=== PATIENT | male | born 1975 | race Caucasian/White ===

== ENCOUNTER 2025-05-12 21:10 | Inpatient (IN) ==
--- NOTE | 2025-05-12 21:34 | Emergency Department Note ---
Impression & Plan Acute right-sided weakness, Stroke-like symptom, Hypertension, Cervical spinal stenosis, Cervical disc herniation ED Provider Note NAME: YARY VALERO AGE: 50 SEX: M : 1975 ARRIVES VIA: Walk-In INFORMANT: Patient, ED PROVIDER(S): Ubaldo Villagran DO CHIEF COMPLAINT: Weakness HPI: The patient is a 50-year-old male who presented to the emergency department for an evaluation of right-sided weakness. The patient initially noticed right upper extremity weakness over the course the last several weeks. The patient started noticing right arm weakness greater than usual as well as right leg weakness over the last 5 to 6 days. He denies having any headache. He has a history of hypertension but has not been compliant with his outpatient medications. He denies having any trauma. He had a workup and they feel this could be secondary to neck issues. He is waiting for an MRI. ROS: See above HPI for pertinent positives & negatives. A total of 10 systems reviewed and were otherwise negative. PAST MEDICAL HISTORY: See Below PAST SURGICAL HISTORY: See Below FAMILY HISTORY: See Below SOCIAL HISTORY: See Below HOME MEDICATIONS: See Below ALLERGIES: See Below VITALS: See Below PHYSICAL EXAMINATION: GENERAL: Patient is awake alert in no acute distress patient is resting comfortably and showing no signs of anxiety EYES: The conjunctivae are clear. The pupils are round and reactive. EARS, NOSE, MOUTH AND THROAT: The nose is without any evidence of any deformity. NECK: The neck is nontender and supple. RESPIRATORY: Normal respiratory effort is noted there is no evidence of wheezing rhonchi or rales CARDIOVASCULAR: Regular rate and rhythm noted there no murmurs rubs or gallops normal S1 normal S2. GASTROINTESTINAL: The abdomen is soft. Abdomen is nontender. MUSCULOSKELETAL/EXTREMITIES: There is no evidence of gross deformity full range of motion is noted in the hips and shoulders. SKIN: There is no obvious evidence of any rash. There are no petechiae, pallor or cyanosis noted. NEUROLOGIC: Patient is awake alert and oriented x3. Jacquard Card Cutter strength was diminished in the right upper extremity compared to left. There is a drift in the right right upper extremity. The patient is able to hold each leg off the bed however the right leg falls in under 5 seconds. MEDICAL DECISION MAKING: The patient is a 50-year-old male who presented to the emergency department for an evaluation of weakness. The patient has noticed right upper extremity weakness for quite some time but starting last week his right upper extremity started to become more weak and he started noticing right lower extremity weakness. I discussed the patient's laboratory and radiographic studies with him. He was found to have hypertension in the emergency department. This was treated with IV medications. The patient's condition was not significantly improved over his time in the emergency department. CT angiography of the head and neck did not reveal any acute occlusion or significant atherosclerosis. The patient may require further inpatient testing which could include MRI of the head and neck. Given the possibility of a radiculopathy he was treated with Decadron. I discussed his condition with the on-call [facility] hospitalist. Triage Nursing notes reviewed. Prior medical records reviewed Vital Signs: reviewed and remarkable for elevated blood pressure. Differential diagnosis: Infection, dehydration, metabolic abnormality, hypo/hyperglycemia, electrolyte disturbance, anemia, hypoxia, cardiac sources, intracerebral event, toxicologic, neurologic, as well as other pathologies. ER treatment provided: See below Diagnostics interpreted by me: ECG: EKG was obtained in the emergency department. My interpretation is normal sinus rhythm at 89 bpm. There is no ectopy. There is no acute ST segment abnormalities noted. LVH was suggested by voltage criteria. This was compared to a tracing from March 10, 2024. No changes were noted. Cardiac Monitoring: An order was placed for continuous cardiac monitoring. The monitor shows a rate of 80 bpm with sinus rhythm. Laboratory studies: As stated above and show below. Imaging studies: See below. Radiographic imaging was reviewed by myself Consultation(s): Dr. Julien was notified about the patient. Past Med/Surg History Problem List (Updated 05/13/25 @ 08:46 by Ubaldo Villagran DO) Cervical disc herniation (Acute) Cervical spinal stenosis (Acute) Arthralgia of cervical spine Hypertension (Acute) Stroke-like symptom (Acute) Acute right-sided weakness (Acute) Chondromalacia, patella Chronic pain of left knee Testicular abscess (Acute) S/P lumbar spinal fusion (Chronic) Sepsis Medical History Hx MRSA infection "[facility]" "randomly gets wounds on his legs and has to f/u w/wound care." last dx thru PCP in center. thinks about 6 months ago, ~07/2023". Per [facility] infection control on 02/14/24, he does not have a MRSA infection within the last year. Diabetes mellitus, type 2 NIDDM Hx of migraines History of anesthesia complications 2004 @[facility], "had to use shock paddles to bring pt out of anesthesia" 2012 @[facility] following endoscopy procedure, "had to use paddles to bring him out of anesthesia again" Sleep apnea CPAP-unable to tolerate, sleeps sitting up COPD (chronic obstructive pulmonary disease) daily inhaler; controlled, stable per pt; last albuterol inhaler use 1 month ago GERD (gastroesophageal reflux disease) controlled, stable per pt Hypertension variable per pt Hyperlipidemia Surgical History History of esophagogastroduodenoscopy (EGD) w/dialation History of lumbar fusion 2004, [facility]. Social History Smoking Status: Current every day smoker Tobacco Type: Cigarettes Cigarettes Per Day: 20; Second Hand Exposure: No; Do You Dip or Chew Tobacco: No; Tobacco Cessation Education Requested by Patient: No Hx Alcohol Use: No Hx Substance Use: Yes Last Used Substance: Unknown Last Used Substance Other:: last use 11/2023-advised Preferred Language: Angolan Communication Ability: Effective Nuclear Medicine Physician Required: No Beliefs That Will Affect Care: None Current Living Situation: Alone Other Information That Helps Us Care for You: No Feels Safe at Home: Yes Safety Concerns: Feels Safe At This Time Assistive Devices: Cane Allergies Allergies Allergy/AdvReac Type Severity Reaction Status Date / Time No Known Allergies Allergy Verified 04/08/24 07:36 Home Meds Home Medications Medication Instructions Recorded Confirmed ibuprofen 800 mg tablet 800 mg PO Q8H PRN Pain 02/11/24 05/13/25 lisinopril 20 mg tablet 20 mg PO HS 02/11/24 05/13/25 metformin 1,000 mg tablet 1,000 mg PO BID 02/11/24 05/13/25 metoprolol succinate 50 mg 50 mg PO HS 02/11/24 05/13/25 tablet,extended release 24 hr pantoprazole 40 mg tablet,delayed 40 mg PO HS 02/11/24 05/13/25 release rosuvastatin 20 mg tablet 20 mg PO HS 02/11/24 05/13/25 semaglutide 1 mg/dose (4 mg/3 mL) 1 mg subcut Q7D 02/11/24 05/13/25 subcutaneous pen injector (Ozempic) umeclidinium 62.5 mcg-vilanterol 1 inh inhalation HS 02/11/24 05/13/25 25 mcg/actuation powdr for inhalation (Anoro Ellipta) bumetanide 1 mg tablet mg 05/13/25 umeclidinium 62.5 mcg-vilanterol inhalation 05/13/25 25 mcg/actuation powdr for inhalation (Anoro Ellipta) Previous Rx's Medication Instructions Recorded tramadol 50 mg tablet 50 - 100 mg (1 - 2 x 50 mg) PO Q6H 04/08/24 PRN pain #15 tabs Results & Data (ED) Vital Signs Vital Signs - 24 hr 05/12/25 21:12 05/12/25 21:21 05/12/25 21:43 Temperature 37.0 C Temperature Source Oral Pulse Rate 96 H 96 H 88 Pulse Rate [Apical] Pulse Rate from SpO2 Sensor Pulse Rhythm [Apical] Pulse Strength [Apical] Respiratory Rate 18 Respiratory Effort / Characteristics Non-Labored Spontaneous Respiratory Depth Normal Respiratory Pattern Regular Blood Pressure 218/112 H 184/112 H Blood Pressure [Right Arm] Blood Pressure Mean 147 Blood Pressure Mean [Right Arm] Pulse Oximetry 97 Oxygen Delivery Method Room Air Sepsis Recent Fever Within 48 Hours No Sepsis New/Unexplained Change in Mental Status N/A Sepsis Action Taken by Nursing No Action Required 05/12/25 22:00 05/12/25 22:30 05/12/25 23:00 Temperature Temperature Source Pulse Rate 93 H Pulse Rate [Apical] 92 H 90 Pulse Rate from SpO2 Sensor 93 H Pulse Rhythm [Apical] Regular Pulse Strength [Apical] Normal Respiratory Rate 18 19 24 Respiratory Effort / Characteristics Non-Labored Spontaneous Respiratory Depth Normal Respiratory Pattern Regular Blood Pressure 131/74 Blood Pressure [Right Arm] 175/108 H 158/103 H Blood Pressure Mean 93 Blood Pressure Mean [Right Arm] 130 121 Pulse Oximetry 97 95 96 Oxygen Delivery Method Room Air Sepsis Recent Fever Within 48 Hours Sepsis New/Unexplained Change in Mental Status Sepsis Action Taken by Nursing 05/12/25 23:03 05/12/25 23:30 05/13/25 00:00 Temperature Temperature Source Pulse Rate 84 88 80 Pulse Rate [Apical] Pulse Rate from SpO2 Sensor 84 Pulse Rhythm [Apical] Pulse Strength [Apical] Respiratory Rate 19 17 20 Respiratory Effort / Characteristics Respiratory Depth Respiratory Pattern Blood Pressure 158/103 H 168/107 H 170/109 H Blood Pressure [Right Arm] Blood Pressure Mean 121 131 129 Blood Pressure Mean [Right Arm] Pulse Oximetry 97 97 95 Oxygen Delivery Method Sepsis Recent Fever Within 48 Hours Sepsis New/Unexplained Change in Mental Status Sepsis Action Taken by Nursing 05/13/25 00:30 05/13/25 01:03 05/13/25 01:33 Temperature Temperature Source Pulse Rate 81 81 90 Pulse Rate [Apical] Pulse Rate from SpO2 Sensor Pulse Rhythm [Apical] Pulse Strength [Apical] Respiratory Rate 17 19 23 Respiratory Effort / Characteristics Respiratory Depth Respiratory Pattern Blood Pressure 177/103 H 152/111 H 172/107 H Blood Pressure [Right Arm] Blood Pressure Mean 131 124 128 Blood Pressure Mean [Right Arm] Pulse Oximetry 96 94 96 Oxygen Delivery Method Sepsis Recent Fever Within 48 Hours Sepsis New/Unexplained Change in Mental Status Sepsis Action Taken by Nursing 05/13/25 02:24 05/13/25 02:30 Temperature Temperature Source Pulse Rate 84 93 H Pulse Rate [Apical] Pulse Rate from SpO2 Sensor Pulse Rhythm [Apical] Pulse Strength [Apical] Respiratory Rate 14 14 Respiratory Effort / Characteristics Respiratory Depth Respiratory Pattern Blood Pressure 179/112 H Blood Pressure [Right Arm] Blood Pressure Mean 134 Blood Pressure Mean [Right Arm] Pulse Oximetry 96 96 Oxygen Delivery Method Sepsis Recent Fever Within 48 Hours Sepsis New/Unexplained Change in Mental Status Sepsis Action Taken by Shelter Medications Current Medication List: was personally reviewed by me Laboratory Data Attestation: I reviewed the patient's lab results. 05/12/25 21:25 05/12/25 21:25 Lab Results 05/12/25 05/12/25 05/12/25 Range/Units 21:25 21:29 21:36 WBC 12.34 H (4.8-10.8) K/ul RBC 5.39 (4.70-6.10) M/uL Hgb 16.9 (14.0-18.0) g/dl POC Hgb 16.7 (14.0-18.0) g/dl Hct 48.3 (42.0-52.0) % POC Hct 49 (42-52) % MCV 89.6 (80.0-100.0) fL MCH 31.4 (25.0-34.0) pg MCHC 35.0 (32.0-36.0) g/dL RDW Std Deviation 40.7 (36.4-46.3) fL RDW Coeff of Cecil 12.4 (11.5-14.5) % Plt Count 290 (130-400) K/uL MPV 9.7 (9.4-12.4) fL Immature Gran % (Auto) 0.2 % Neut % (Auto) 60.6 % Lymph % (Auto) 27.2 % Erath % (Auto) 7.9 % Eos % (Auto) 3.5 % Baso % (Auto) 0.6 % Neut # (Auto) 7.46 H (1.40-6.50) K/uL Lymph # (Auto) 3.36 (1.20-3.40) K/uL Erath # (Auto) 0.98 H (0.11-0.59) K/uL Eos # (Auto) 0.43 (0.00-0.50) K/uL Baso # (Auto) 0.08 (0.00-0.20) K/uL Immature Gran # (Auto) 0.03 (0.01-0.20) K/uL ESR 32 H (0-15) mm/hr PT 10.5 (9.0-12.0) Seconds INR 1.0 (0.9-1.1) APTT 28 (21-31) Seconds PTT Ratio 1.0 POC Sodium 139 (135-144) mmol/L Sodium 137 (136-145) mmol/L POC Potassium 3.7 (3.3-5.0) mmol/L Potassium 3.8 (3.5-5.1) mmol/L POC Chloride 104 (101-112) mmol/L Chloride 104 (98-107) mmol/L Carbon Dioxide 25 (21-32) mmol/L POC Total CO2 24 (24-31) mmol/L Anion Gap 8 (3-11) POC Anion Gap 16.0 (16-25) mmol/L POC BUN 9 (7-18) mg/dl BUN 9 (6-23) mg/dl Creatinine 0.62 (0.6-1.4) mg/dl POC Creatinine 0.7 (0.6-1.3) mg/dl Est Cr Clr Drug Dosing 182.1 ml/min eGFR 117.90 BUN/Creatinine Ratio 14.5 (10-20) Glucose 127 H (70-99(Fasting)) mg/dl POC Glucose 138 H (70-99) mg/dl POC Glucose (other) 131 H (70-99) mg/dl Calcium 9.5 (8.6-10.3) mg/dl POC Ioniz Calcium Marion 1.13 (1.12-1.32) mmol/l Magnesium 1.9 (1.7-2.4) mg/dl Total Bilirubin 0.5 (0.2-1.0) mg/dl AST 23 (13-39) U/L ALT 41 (7-52) U/L Alkaline Phosphatase 62 (34-104) U/L Troponin I High Sens 9.5 (0-20) pg/ml C-Reactive Protein 0.91 H (0-0.5) mg/dl Total Protein 7.7 (6.0-8.3) gm/dl Albumin 4.2 (3.4-5.0) gm/dl Globulin 3.5 (2.5-4.0) gm/dl Albumin/Globulin Ratio 1.2 (0.9-2) Administered Medications Metformin HCl (Metformin Hcl 500 Mg Tab) 1,000 mg PO BID CHRISTINE Stop: 06/12/25 08:59 Last Admin: 05/13/25 08:40 Dose: 1,000 mg Documented By: OLE Discontinued Medications Aspirin (Aspirin Chew 324 Mg) 324 mg PO NOW STA Stop: 05/13/25 02:20 Last Admin: 05/13/25 02:31 Dose: 324 mg Documented By: SYBIL Dexamethasone Sodium Phosphate (DexamethasonePf 10 Mg/Ml Vial) 10 mg IV NOW ONE Stop: 05/13/25 01:31 Last Admin: 05/13/25 01:40 Dose: 10 mg Documented By: SYBIL Ioversol (Optiray 320 125ml) 115 ml IV ONCE ONE Stop: 05/12/25 21:52 Last Admin: 05/12/25 21:52 Dose: 115 ml Documented By: ROBERTA Labetalol HCl (Labetalol Hcl Iv 5 Mg/Ml 20ml) 10 mg IV NOW STA Stop: 05/12/25 21:25 Last Admin: 05/12/25 21:43 Dose: 10 mg Documented By: RASHIDA Lorazepam (Lorazepam 2 Mg/1 Ml Vial) 1 mg IV ONE PRN PRN Reason: PRIOR TO MRI Last Admin: 05/13/25 03:02 Dose: 1 mg Documented By: PAUL Rosuvastatin Calcium (Rosuvastatin Calcium 20 Mg Tab) 20 mg PO NOW STA Stop: 05/13/25 02:31 Last Admin: 05/13/25 06:05 Dose: 20 mg Documented By: NAY Imaging Data Attestation: I personally reviewed and interpreted this imaging study as follows: My Impression: 1 view chest x-ray was obtained in the emergency department. My interpretation is no free air or definite infiltrate, final report below. CT of the brain was obtained in the emergency department. My interpretation is no intracranial hemorrhage or mass effect, final report below. Radiologist's Impression: Chest X-Ray 05/12/25 21:24 HISTORY: Neurodeficit. Acute stroke. TECHNIQUE: Portable AP radiograph of the chest. COMPARISON: Chest radiograph dated 10/30/2016. FINDINGS: Mild linear left lower lung opacity favoring atelectasis or scarring. No other focal lung consolidation. No pneumothorax or pleural effusion.Top normal heart size. Left-sided aortic arch. Midline trachea. No acute osseous abnormality. IMPRESSION: No acute cardiopulmonary findings. Electronically signed by Joon Jalloh 05-12-2025 10:[address] 05/12/25 21:24 Exam(s): CT HEAD Without Contrast EXAM: CT Head Without Intravenous Contrast CLINICAL HISTORY: Reason for exam: neuro deficit, acute stroke suspected. TECHNIQUE: Axial computed tomography images of the head/brain without intravenous contrast. Automated exposure control was utilized for the study. A dose lowering technique was utilized adhering to the principles of ALARA. COMPARISON: No relevant prior studies available. FINDINGS: Brain: Unremarkable. No hemorrhage. No significant white matter disease. No edema. Ventricles: Unremarkable. No ventriculomegaly. Bones/joints: Unremarkable. No acute fracture. Soft tissues: Unremarkable. Sinuses: Unremarkable as visualized. No acute sinusitis. Mastoid air cells: Unremarkable as visualized. No mastoid effusion. IMPRESSION: No evidence of acute intracranial pathology. Electronically signed by: Brooke Ragland MD 05/13/25 00:54 AM Head CTA 05/12/25 21:24 Exam(s): CTA HEAD With Contrast IV Amt: 115 ml opti 320 EXAM: CT Angiography Head With Intravenous Contrast CLINICAL HISTORY: Reason for exam: neuro deficit, acute stroke suspected. TECHNIQUE: Axial computed tomographic angiography images of the head with intravenous contrast. CTDI is 14.03 mGy and DLP is 544.43 mGy-cm. Automated exposure control was utilized for the study. A dose lowering technique was utilized adhering to the principles of ALARA. MIP reconstructed images were created and reviewed. CONTRAST: Patient received 115 ml opti 320 of IV contrast COMPARISON: No relevant prior studies available. FINDINGS: The dural venous sinuses are patent. Right internal carotid artery: No acute findings. Intracranial segment is patent with no significant stenosis. No aneurysm. Right anterior cerebral artery: Unremarkable. No occlusion or significant stenosis. No aneurysm. Right middle cerebral artery: Unremarkable. No occlusion or significant stenosis. No aneurysm. Right posterior cerebral artery: Unremarkable. No occlusion or significant stenosis. No aneurysm. Right vertebral artery: Unremarkable as visualized. Left internal carotid artery: No acute findings. Intracranial segment is patent with no significant stenosis. No aneurysm. Left anterior cerebral artery: Unremarkable. No occlusion or significant stenosis. No aneurysm. Left middle cerebral artery: Unremarkable. No occlusion or significant stenosis. No aneurysm. Left posterior cerebral artery: Unremarkable. No occlusion or significant stenosis. No aneurysm. Left vertebral artery: Unremarkable as visualized. Basilar artery: Unremarkable. No occlusion or significant stenosis. No aneurysm. IMPRESSION: Negative CT angiogram of the head. Electronically signed by: Brooke Ragland MD 05/13/25 01:22 AM Neck CTA 05/12/25 21:24 Exam(s): CTA NECK With Contrast IV Amt: 115 ml opti 320 EXAM: CT Angiography Neck With Intravenous Contrast CLINICAL HISTORY: Reason for exam: neuro deficit, acute stroke suspected. TECHNIQUE: Routine carotid CT angiography protocol was performed with intravenous contrast. NASCET criteria using the distal ICAs for comparison were used for evaluation of stenoses. Automated exposure control was utilized for the study. A dose lowering technique was utilized adhering to the principles of ALARA. MIP reconstructed images were created and reviewed. CONTRAST: Patient received 115 ml opti 320 of IV contrast COMPARISON: None. FINDINGS: VASCULATURE: Right common carotid artery: Unremarkable. No occlusion or significant stenosis. No dissection. Right internal carotid artery: Unremarkable. Extracranial segment is patent with no occlusion or significant stenosis. No dissection. Right external carotid artery: Unremarkable. No occlusion. Right vertebral artery: Unremarkable. No occlusion or significant stenosis. No dissection. Left common carotid artery: Unremarkable. No occlusion or significant stenosis. No dissection. Left internal carotid artery: Unremarkable. Extracranial segment is patent with no occlusion or significant stenosis. No dissection. Left external carotid artery: Unremarkable. No occlusion. Left vertebral artery: Unremarkable. No occlusion or significant stenosis. No dissection. NECK: Bones/joints: Unremarkable. No acute fracture. Soft tissues: Prominent cervical lymph nodes and lingual tonsils. Lung apices: Bronchitis with pneumonitis. CAROTID STENOSIS REFERENCE USING NASCET CRITERIA: % ICA stenosis = (1 - narrowest ICA diameter/diameter of distal cervical ICA) x 100. Mild - <50% stenosis. Moderate - 50-69% stenosis. Severe - 70-94% stenosis. Near occlusion - 95-99% stenosis. Occluded - 100% stenosis. IMPRESSION: Negative CTA neck. Electronically signed by: Brooke Ragland MD 05/13/25 01:26 AM Brain MRI 05/13/25 02:19 EXAM: MR brain wo con CLINICAL HISTORY: stroke like sx TECHNIQUE: MRI of the brain was performed without contrast with multiplanar sequences obtained. COMPARISON: none. FINDINGS: Brain Parenchyma: No evidence of acute infarction or hemorrhage. Normal dill-white matter differentiation. No mass lesions or focal cortical abnormalities identified. Ventricles and Sulci: Normal size and configuration of the lateral ventricles, third ventricle, and fourth ventricle. No evidence of hydrocephalus or ventriculomegaly. Sylvian fissures, sulci, and cisterns are within normal limits. Posterior Fossa: Cerebellum and brainstem appear normal without evidence of mass lesions or signal abnormalities. Cranial Nerves: Normal course and appearance of cranial nerves identified. Vessels: No evidence of vascular malformations or aneurysms. Intracranial arteries and veins appear normal without evidence of stenosis or occlusion. Orbits and Skull Base: Orbits and skull base structures are normal without evidence of abnormalities. IMPRESSION: MRI of the brain: No acute intracranial abnormality identified. Normal appearance of brain parenchyma, ventricular system, posterior fossa, cranial nerves, vessels, orbits, and skull base. Electronically signed by José Luis Ji 05-13-2025 04:51 AM Cervical Spine MRI 05/13/25 02:19 EXAM: MR cervical spine wo con CLINICAL HISTORY: right sided numb and weak TECHNIQUE: MRI of the cervical spine was performed. Sequences obtained include sagittal T1-weighted, T2-weighted, STIR (Short Tau Inversion Recovery), and axial T2-weighted sequences. Additional sequences such as gradient echo (GRE) or post-contrast T1-weighted images may have been included based on clinical indication. COMPARISON: Comparison is made with prior imaging studies dated [MM/DD/YYYY] if available. No previous studies are available for comparison. FINDINGS: Vertebral Alignment: Loss of cervical lordosis - suggest possibility of paraspinal muscle spasm. Vertebral Bodies and Intervertebral Discs: Normal vertebral body height and alignment. Disc desiccations are noted involving C5-C6 and C6-C7 level. [id number] analysis: C2-C3: There is no significant disc pathology. Normal morphology of the ligamentum flava. No arthropathy of the uncovertebral and zygapophyseal joints. No significant spinal canal stenosis C3-C4: There is no significant disc pathology. Normal morphology of the ligamentum flava. No arthropathy of the uncovertebral and zygapophyseal joints. No significant spinal canal stenosis C4-C5: Posterior bilateral uncovertebral arthrosis causes mild narrowing of bilateral neural foramina and indenting bilateral exiting nerve root. C5-C6: Posterior disc bulge with peridiscal osteophytes; more on right. It causes bilateral neural foramina ( rightleft). It causes significant impingement on right exiting and mild impingement on left exiting nerve root. It causes compression on spinal cord. C6-C7: Diffuse disc bulge with left paracentral disc protrusion and annular tear along with right side large thickened ligamentum flavum which leads to narrowing of canal and bilateral neural foramina. It causes compression on bilateral exiting nerve root. C7-T1: There is no significant disc pathology. Normal morphology of the ligamentum flava. No arthropathy of the uncovertebral and zygapophyseal joints. No significant spinal canal stenosis Spinal Cord and Nerve Roots: Subtle hyperintensity is noted involving cervical spinal cord at the level of C5-C6 level (adjacent to the compression side) - suggest possibility of compressive myelopathy. Soft Tissues: Paraspinal soft tissues appear normal without evidence of abnormal signal intensity or mass lesions. IMPRESSION: 1. Mild cervical spondylosis changes. 2. Posterior disc herniation is noted at C4-C5 to C6-C7 level. 3. Canal stenosis is noted at C5-C6 level causing compression on cord with changes of compressive myelopathy as described. Electronically signed by José Luis Ji 05-13-2025 04:56 AM Discharge Plan Visit Data Chief Complaint: TIA Symptoms Stated Complaint: RT SIDE WEAKNESS, BALANCE, NECK PAIN ED Provider: Roberto Valiente Discharge Problem: Acute right-sided weakness, Stroke-like symptom, Hypertension, Cervical spinal stenosis, Cervical disc herniation Patient Disposition: Admitted As Inpatient Condition: Fair Discharge Instructions Interventions: ED Discharge Assessment Last Done: 05/13/25 03:41
[2025-05-12] MEDS: LABETALOL HCL IV 5 MG/ML 20ML IV STA (21:43)
[2025-05-12 21:44] LABS: Basophils # (auto) 0.08 K/uL (0.00-0.20); Basophils % (auto) 0.6 %; Eosinophils # (auto) 0.43 K/uL (0.00-0.50); Eosinophils % (auto) 3.5 %; Hematocrit (blood only) 48.3 % (42.0-52.0); Hemoglobin 16.9 g/dl (14.0-18.0); Immature Granulocytes # (auto) 0.03 K/uL (0.01-0.20); Immature Granulocytes % (auto) 0.2 %; Lymphocytes # (auto) 3.36 K/uL (1.20-3.40); Lymphocytes % (auto) 27.2 %; Mean Corpuscular Hemoglobin 31.4 pg (25.0-34.0); Mean Corpuscular Volume 89.6 fL (80.0-100.0); Mean Platelet Volume 9.7 fL (9.4-12.4); Monocytes # (auto) 0.98 K/uL (0.11-0.59); Monocytes % (auto) 7.9 %; Neutrophils # (auto) 7.46 K/uL (1.40-6.50); Neutrophils % (auto) 60.6 %; Platelet Count 290 K/uL (130-400); RDW Coefficient of Variation 12.4 % (11.5-14.5); RDW Standard Deviation 40.7 fL (36.4-46.3); Red Blood Count 5.39 M/uL (4.70-6.10); White Blood Count 12.34 K/ul (4.8-10.8)
[2025-05-12 21:48] LABS: iSTAT Creatinine 0.7 mg/dl (0.6-1.3); iSTAT Hemoglobin 16.7 g/dl (14.0-18.0); iSTAT Ionized Calcium 1.13 mmol/l (1.12-1.32); iSTAT Potassium 3.7 mmol/L (3.3-5.0)
[2025-05-12] MEDS: OPTIRAY 320 125ml IV ONE (21:52)
[2025-05-12 22:01] LABS: Albumin Globulin Ratio 1.2 (0.9-2); Albumin Level 4.2 gm/dl (3.4-5.0); BUN Creatinine Ratio 14.5 (10-20); Bilirubin,Total 0.5 mg/dl (0.2-1.0); Calcium 9.5 mg/dl (8.6-10.3); Creatinine Clr Calc Pharmacy 182.1 ml/min; Globulin 3.5 gm/dl (2.5-4.0); Magnesium 1.9 mg/dl (1.7-2.4); Potassium 3.8 mmol/L (3.5-5.1); Total Protein 7.7 gm/dl (6.0-8.3)
[2025-05-12 22:07] LABS: Troponin I High Sensitivity 9.5 pg/ml (0-20)
--- NOTE | 2025-05-12 22:10 | XRay Report ---
HISTORY: Neurodeficit. Acute stroke. TECHNIQUE: Portable AP radiograph of the chest. COMPARISON: Chest radiograph dated 10/30/2016. FINDINGS: Mild linear left lower lung opacity favoring atelectasis or scarring. No other focal lung consolidation. No pneumothorax or pleural effusion.Top normal heart size. Left-sided aortic arch. Midline trachea. No acute osseous abnormality. IMPRESSION: No acute cardiopulmonary findings. Electronically signed by Joon Jalloh 05-12-2025 10:10 PM
[2025-05-12 22:14] LABS: Partial Thromboplastin Time 28 Seconds (21-31); Prothrombin Time 10.5 Seconds (9.0-12.0)
--- NOTE | 2025-05-13 00:55 | CT Scan Report ---
Exam(s): CT HEAD Without Contrast EXAM: CT Head Without Intravenous Contrast CLINICAL HISTORY: Reason for exam: neuro deficit, acute stroke suspected. TECHNIQUE: Axial computed tomography images of the head/brain without intravenous contrast. Automated exposure control was utilized for the study. A dose lowering technique was utilized adhering to the principles of ALARA. COMPARISON: No relevant prior studies available. FINDINGS: Brain: Unremarkable. No hemorrhage. No significant white matter disease. No edema. Ventricles: Unremarkable. No ventriculomegaly. Bones/joints: Unremarkable. No acute fracture. Soft tissues: Unremarkable. Sinuses: Unremarkable as visualized. No acute sinusitis. Mastoid air cells: Unremarkable as visualized. No mastoid effusion. IMPRESSION: No evidence of acute intracranial pathology. Electronically signed by: Brooke Ragland MD 05/13/25 00:54 AM
--- NOTE | 2025-05-13 01:23 | CT Scan Report ---
Exam(s): CTA HEAD With Contrast IV Amt: 115 ml opti 320 EXAM: CT Angiography Head With Intravenous Contrast CLINICAL HISTORY: Reason for exam: neuro deficit, acute stroke suspected. TECHNIQUE: Axial computed tomographic angiography images of the head with intravenous contrast. CTDI is 14.03 mGy and DLP is 544.43 mGy-cm. Automated exposure control was utilized for the study. A dose lowering technique was utilized adhering to the principles of ALARA. MIP reconstructed images were created and reviewed. CONTRAST: Patient received 115 ml opti 320 of IV contrast COMPARISON: No relevant prior studies available. FINDINGS: The dural venous sinuses are patent. Right internal carotid artery: No acute findings. Intracranial segment is patent with no significant stenosis. No aneurysm. Right anterior cerebral artery: Unremarkable. No occlusion or significant stenosis. No aneurysm. Right middle cerebral artery: Unremarkable. No occlusion or significant stenosis. No aneurysm. Right posterior cerebral artery: Unremarkable. No occlusion or significant stenosis. No aneurysm. Right vertebral artery: Unremarkable as visualized. Left internal carotid artery: No acute findings. Intracranial segment is patent with no significant stenosis. No aneurysm. Left anterior cerebral artery: Unremarkable. No occlusion or significant stenosis. No aneurysm. Left middle cerebral artery: Unremarkable. No occlusion or significant stenosis. No aneurysm. Left posterior cerebral artery: Unremarkable. No occlusion or significant stenosis. No aneurysm. Left vertebral artery: Unremarkable as visualized. Basilar artery: Unremarkable. No occlusion or significant stenosis. No aneurysm. IMPRESSION: Negative CT angiogram of the head. Electronically signed by: Brooke Ragland MD 05/13/25 01:22 AM
--- NOTE | 2025-05-13 01:27 | CT Scan Report ---
Exam(s): CTA NECK With Contrast IV Amt: 115 ml opti 320 EXAM: CT Angiography Neck With Intravenous Contrast CLINICAL HISTORY: Reason for exam: neuro deficit, acute stroke suspected. TECHNIQUE: Routine carotid CT angiography protocol was performed with intravenous contrast. NASCET criteria using the distal ICAs for comparison were used for evaluation of stenoses. Automated exposure control was utilized for the study. A dose lowering technique was utilized adhering to the principles of ALARA. MIP reconstructed images were created and reviewed. CONTRAST: Patient received 115 ml opti 320 of IV contrast COMPARISON: None. FINDINGS: VASCULATURE: Right common carotid artery: Unremarkable. No occlusion or significant stenosis. No dissection. Right internal carotid artery: Unremarkable. Extracranial segment is patent with no occlusion or significant stenosis. No dissection. Right external carotid artery: Unremarkable. No occlusion. Right vertebral artery: Unremarkable. No occlusion or significant stenosis. No dissection. Left common carotid artery: Unremarkable. No occlusion or significant stenosis. No dissection. Left internal carotid artery: Unremarkable. Extracranial segment is patent with no occlusion or significant stenosis. No dissection. Left external carotid artery: Unremarkable. No occlusion. Left vertebral artery: Unremarkable. No occlusion or significant stenosis. No dissection. NECK: Bones/joints: Unremarkable. No acute fracture. Soft tissues: Prominent cervical lymph nodes and lingual tonsils. Lung apices: Bronchitis with pneumonitis. CAROTID STENOSIS REFERENCE USING NASCET CRITERIA: % ICA stenosis = (1 - narrowest ICA diameter/diameter of distal cervical ICA) x 100. Mild - <50% stenosis. Moderate - 50-69% stenosis. Severe - 70-94% stenosis. Near occlusion - 95-99% stenosis. Occluded - 100% stenosis. IMPRESSION: Negative CTA neck. Electronically signed by: Brooke Ragland MD 05/13/25 01:26 AM
[2025-05-13] MEDS: dexAMETHasone**PF** 10 MG/ML VIAL IV ONE (01:40)
[2025-05-13] MEDS: ASPIRIN CHEW 324 MG PO STA (02:31)
--- NOTE | 2025-05-13 02:33 | History & Physical Report ---
Date of Service May 13, 2025 Assessment & Plan (1) Acute right-sided weakness: (2) Stroke-like symptom: (3) Arthralgia of cervical spine: (4) Hypertension: Plan Patient is a 50-year-old male with past medical history of hypertension, type II DM, HLD, COPD, BERNADETTE, GERD. Patient presented due to acute worsening of right- sided numbness and weakness since . Patient is unable to close his right hand and has both upper and lower extremity numbness and weakness resulting in difficulty with ambulation. He is being admitted for stroke workup including brain MRI and further workup of his cervical spine including MRI. #CVA workup CVA vs Cervical spinal workup - head CT and CTAs negative in ED. Laboratories WNL. Patient with right upper and lower extremity decrease strength, numbness, weakness worsening. Patient denies headaches or visual sy mptoms. ESR and CRP ordered with occasional jaw pain Brain MRI and cervical spine MRI ordered; patient with difficulty laying down and MRIs due to sleep apnea Ativan and oxygen as needed for MRI - stroke without TNK order set ( outside of time window)- active ROM, no IVs right side, Q4H neuro checks, pt/ot evals, speech eval - asa load given on admission - start ASA 81mg daily - continue rosuvastatin 20 Mg p.o. daily, ordered on admission - Allow for permissive hypertension with goal parameters 220/110 until MRI resulted - Telemetry monitoring - echo with bubble study ordered - lipid panel and A1C with AM labs - patient given Decadron 10 Mg IV in ED reassess in a.m. if beneficial to patients symptoms regarding further steroid use #HTN elevated in ED and on admission as patient has not taken any home medications since due to forgetting them on vacation - received labetalol 10 Mg IV in ED Continue labetalol as needed for BP greater than 220/110 until MRI resulted Hold lisinopril, metoprolol, Bumex #Type II DM on metformin and Ozempic (injections on ) Continue metformin Loose SSI #HLDcontinue statin #COPDcontinue inhaler #GERDcontinue PPI #Tobacco use1-1.5 to 1.5 packs cigarettes per day. Declines nicotine patch on admission Encourage smoking cessation VTE ppx: SCDs Dispo: med/telemetry Admission and Anticipated Discharge Date Admission Date: 05/13/25 History of Present Illness Chief Complaint: tia symptoms Primary Care Provider: TYLER Sanchez Patient is a 50-year-old male with past medical history of hypertension, type II DM, HLD, COPD, BERNADETTE, GERD. Patient presented due to acute worsening of right- sided numbness and weakness since . Patient is unable to close his right hand and has both upper and lower extremity numbness and weakness resulting in difficulty with ambulation. He is being admitted for stroke workup including brain MRI and further workup of his cervical spine including MRI. Patient seen at bedside with his girlfriend present. He stated for several months he has been having issues with numbness in his right upper extremity. With his PCP he has had a nerve conduction test as they thought his right upper extremity weakness was from a pinched nerve. He was prescribed gabapentin in January which seemed to help until more recently. On he developed significant right sided numbness and pain which radiated from his neck/jaw down his arm into his right leg. He has pain with chewing. He uses a cane at baseline and has been having significant difficulty ambulating. He did just have his left knee replaced in February as well. Patient stated he was going to [place] on vacation so he went on vacation and persisted through the symptoms. When he returned home yesterday he decided. Patient stated he cannot lay down for an MRI because it is of his sleep apnea and is working with his insurance to have a standing MRI in [place] however it has not yet been authorized. He supposed to have an MRI of his cervical spine due to these ongoing symptoms. He stated he has a history of lumbar stenosis and has had lumbar surgery over no recent imaging of his back. His girlfriend at bedside stated he has had intermittent slurred speech over the past 48 to 72 hours however nothing that persists. Patient denies any recent facial droop, vision changes, hearing loss, dizziness, headaches, chest pain, shortness of breath, nausea, vomiting, diarrhea, urinary or bowel incontinence. Patient is a current smoker smoking approximately 1 to 1-1/2 pack of cigarettes per day, declines nicotine patch at this time. He denies alcohol use. He does have a CPAP for sleep apnea however does not use it. He has not had any home medications since because he forgot them on vacation. He wishes to be full code. Patient is agreeable to admission and potential MRI with Ativan and oxygen during MRI. Allergies Allergy/AdvReac Type Severity Reaction Status Date / Time No Known Allergies Allergy Verified 04/08/24 07:36 Home Medications Medication Instructions Recorded Confirmed Type ibuprofen 800 mg tablet 800 mg PO Q8H PRN Pain 02/11/24 05/13/25 History lisinopril 20 mg tablet 20 mg PO HS 02/11/24 05/13/25 History metformin 1,000 mg tablet 1,000 mg PO BID 02/11/24 05/13/25 History metoprolol succinate 50 mg 50 mg PO HS 02/11/24 05/13/25 History tablet,extended release 24 hr pantoprazole 40 mg tablet,delayed 40 mg PO HS 02/11/24 05/13/25 History release rosuvastatin 20 mg tablet 20 mg PO HS 02/11/24 05/13/25 History semaglutide 1 mg/dose (4 mg/3 mL) 1 mg subcut Q7D 02/11/24 05/13/25 History subcutaneous pen injector (Ozempic) umeclidinium 62.5 mcg-vilanterol 1 inh inhalation HS 02/11/24 05/13/25 History 25 mcg/actuation powdr for inhalation (Anoro Ellipta) tramadol 50 mg tablet 50 - 100 mg (1 - 2 x 50 mg) PO Q6H 04/08/24 05/13/25 Rx PRN pain #15 tabs bumetanide 1 mg tablet mg 05/13/25 History umeclidinium 62.5 mcg-vilanterol inhalation 05/13/25 History 25 mcg/actuation powdr for inhalation (Anoro Ellipta) Past Med/Surg History Problem List (Updated 05/13/25 @ 03:38 by Heather Leiva PA-C) Arthralgia of cervical spine Hypertension (Acute) Stroke-like symptom (Acute) Acute right-sided weakness (Acute) Chondromalacia, patella Chronic pain of left knee Testicular abscess (Acute) S/P lumbar spinal fusion (Chronic) Sepsis Medical History Hx MRSA infection "[facility]" "randomly gets wounds on his legs and has to f/u w/wound care." last dx thru PCP in [place]. thinks about 6 months ago, ~07/2023". Per [facility] infection control on 02/14/24, he does not have a MRSA infection within the last year. Diabetes mellitus, type 2 NIDDM Hx of migraines History of anesthesia complications 2004 @[facility], "had to use shock paddles to bring pt out of anesthesia" 2011 @[facility] following endoscopy procedure, "had to use paddles to bring him out of anesthesia again" Sleep apnea CPAP-unable to tolerate, sleeps sitting up COPD (chronic obstructive pulmonary disease) daily inhaler; controlled, stable per pt; last albuterol inhaler use 1 month ago GERD (gastroesophageal reflux disease) controlled, stable per pt Hypertension variable per pt Hyperlipidemia Surgical History History of esophagogastroduodenoscopy (EGD) w/dialation History of lumbar fusion 2004, [facility]. Social History Smoking Status: Current every day smoker Tobacco Type: Cigarettes Cigarettes Per Day: 20; Second Hand Exposure: No; Do You Dip or Chew Tobacco: No; Hx Alcohol Use: No Hx Substance Use: Yes Last Used Substance: Unknown Last Used Substance Other:: last use 11/2023-advised Preferred Language: Kosovan Communication Ability: Effective Rn Rehabilitation Required: No Beliefs That Will Affect Care: None Current Living Situation: Alone Feels Safe at Home: Yes Assistive Devices: Cane Review of Systems Review of Systems: see HPI Physical Exam Physical Exam: The patient is awake, alert and oriented 3, well developed and well nourished, normocephalic and atraumatic, in no acute distress. Non-toxic appearing. HEENT- EOMI, mucous membranes moist. Hearing grossly intact. Heart-normal S1 and S2. No murmurs, rubs or gallops. Lungs-clear bilaterally, no respiratory distress, no accessory muscle use. Abdomen-normal bowel sounds and soft. No ascites noted. Non-tender. Extremities- no clubbing, cyanosis, or edema. Psychiatric-normal affect. Musculoskeletal: decreased [employer] strength of right upper extremity, patient unable to fully close hand. 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 Right lower extremity strength 2/5. Left lower extremity strength 5/5. Neurologic: PERRL, EOMI, accommodation nl, no face palsy, no dysarthria Motor/Sensory: no pronator drift and no sensory deficit Results & Data Results & Data Vital Signs (Past 12 Hours) Vital Signs Temp Pulse Pulse Resp BP BP Pulse Ox 05/13/25 01:33 90 23 172/107 H 96 05/13/25 01:03 81 19 152/111 H 94 05/13/25 00:30 81 17 177/103 H 96 05/13/25 00:00 80 20 170/109 H 95 05/12/25 23:30 88 17 168/107 H 97 05/12/25 23:03 84 19 158/103 H 97 05/12/25 23:00 90 24 158/103 H 96 05/12/25 22:30 93 H 19 131/74 95 05/12/25 22:00 92 H 18 175/108 H 97 05/12/25 21:43 88 184/112 H 05/12/25 21:21 96 H 05/12/25 21:12 37.0 C 96 H 18 218/112 H 97 O2 Del Method 05/13/25 01:33 05/13/25 01:03 05/13/25 00:30 05/13/25 00:00 05/12/25 23:30 05/12/25 23:03 05/12/25 23:00 Room Air 05/12/25 22:30 05/12/25 22:00 05/12/25 21:43 05/12/25 21:21 05/12/25 21:12 Room Air Laboratory Results reviewed CBC, CMP, PT/INR, magnesium, troponin Diagnostic Findings reviewed neck CTA, head CTA, head CT, CXR Medications Administered EDlabetalol 10 Mg IV, Decadron 10 Mg IV Admissionaspirin 325 Mg p.o., rosuvastatin 20 Mg p.o. ECG Additional Comments: NSR, rate 89 QTc 447 Code Status & VTE Plan Code Status full code VTE Prophylaxis Plan VTE Prophylaxis will be ordered: Yes Supervising Physician Co-Signing Physician Notes I personally saw and examined the patient. I independently reviewed the labs, EKG, imaging, problem list, medication list, past medical history and family history. I verified all [place] points and agree with Heather Leiva PA-C with the following exceptions and/or additions: 50 year old with right sided weakness made worse with neck movement and significantly worse over the last 2 days. Now unable to open his hand. Cervical spinal stenosis and radiculopathy on nerve conduction studies in January. Was planning on having outpatient MRI but unable to lie flat so was trying to find one he could sit up in but yet to have this done. O/E Right foot drop, hip flex 3/5, unable to fully [employer]worker [employer], gross sensory loss on right side, HS RRR, no murmurs, Chest CTAB A/P Cervical spinal stenosis with myelopathy - worse whenever he moves his neck. Consult ortho spine (requested Dr Villareal as he is already under [facility]). Dr Villareal contacted and will see patient today. No further stroke workup required. PG Care Time/CCT Total # of Minutes Spent Total Time Spent with Patient: Total time spent is greater than 50% in coordination of care (as documented) at patient's floor/unit and/or counseling patient: Coding Level of Care Code 61198 INT INP/OBS CARE 3/75MIN Diagnoses Acute right-sided weakness R53.1 Stroke-like symptom R29.90 Arthralgia of cervical spine M54.2 Hypertension I10
[2025-05-13 02:58] LABS: C Reactive Protein 0.91 mg/dl (0-0.5)
[2025-05-13] MEDS: LORazepam 2 MG/1 ML VIAL IV PRN (03:02)
--- NOTE | 2025-05-13 04:51 | Magnetic Resonance Report ---
EXAM: MR brain wo con CLINICAL HISTORY: stroke like sx TECHNIQUE: MRI of the brain was performed without contrast with multiplanar sequences obtained. COMPARISON: none. FINDINGS: Brain Parenchyma: No evidence of acute infarction or hemorrhage. Normal dill-white matter differentiation. No mass lesions or focal cortical abnormalities identified. Ventricles and Sulci: Normal size and configuration of the lateral ventricles, third ventricle, and fourth ventricle. No evidence of hydrocephalus or ventriculomegaly. Sylvian fissures, sulci, and cisterns are within normal limits. Posterior Fossa: Cerebellum and brainstem appear normal without evidence of mass lesions or signal abnormalities. Cranial Nerves: Normal course and appearance of cranial nerves identified. Vessels: No evidence of vascular malformations or aneurysms. Intracranial arteries and veins appear normal without evidence of stenosis or occlusion. Orbits and Skull Base: Orbits and skull base structures are normal without evidence of abnormalities. IMPRESSION: MRI of the brain: No acute intracranial abnormality identified. Normal appearance of brain parenchyma, ventricular system, posterior fossa, cranial nerves, vessels, orbits, and skull base. Electronically signed by José Luis Ji 05-13-2025 04:51 AM
--- NOTE | 2025-05-13 04:56 | Magnetic Resonance Report ---
EXAM: MR cervical spine wo con CLINICAL HISTORY: right sided numb and weak TECHNIQUE: MRI of the cervical spine was performed. Sequences obtained include sagittal T1-weighted, T2-weighted, STIR (Short Tau Inversion Recovery), and axial T2-weighted sequences. Additional sequences such as gradient echo (GRE) or post-contrast T1-weighted images may have been included based on clinical indication. COMPARISON: Comparison is made with prior imaging studies dated [MM/DD/YYYY] if available. No previous studies are available for comparison. FINDINGS: Vertebral Alignment: Loss of cervical lordosis - suggest possibility of paraspinal muscle spasm. Vertebral Bodies and Intervertebral Discs: Normal vertebral body height and alignment. Disc desiccations are noted involving C5-C6 and C6-C7 level. [id number] analysis: C2-C3: There is no significant disc pathology. Normal morphology of the ligamentum flava. No arthropathy of the uncovertebral and zygapophyseal joints. No significant spinal canal stenosis C3-C4: There is no significant disc pathology. Normal morphology of the ligamentum flava. No arthropathy of the uncovertebral and zygapophyseal joints. No significant spinal canal stenosis C4-C5: Posterior bilateral uncovertebral arthrosis causes mild narrowing of bilateral neural foramina and indenting bilateral exiting nerve root. C5-C6: Posterior disc bulge with peridiscal osteophytes; more on right. It causes bilateral neural foramina ( rightleft). It causes significant impingement on right exiting and mild impingement on left exiting nerve root. It causes compression on spinal cord. C6-C7: Diffuse disc bulge with left paracentral disc protrusion and annular tear along with right side large thickened ligamentum flavum which leads to narrowing of canal and bilateral neural foramina. It causes compression on bilateral exiting nerve root. C7-T1: There is no significant disc pathology. Normal morphology of the ligamentum flava. No arthropathy of the uncovertebral and zygapophyseal joints. No significant spinal canal stenosis Spinal Cord and Nerve Roots: Subtle hyperintensity is noted involving cervical spinal cord at the level of C5-C6 level (adjacent to the compression side) - suggest possibility of compressive myelopathy. Soft Tissues: Paraspinal soft tissues appear normal without evidence of abnormal signal intensity or mass lesions. IMPRESSION: 1. Mild cervical spondylosis changes. 2. Posterior disc herniation is noted at C4-C5 to C6-C7 level. 3. Canal stenosis is noted at C5-C6 level causing compression on cord with changes of compressive myelopathy as described. Electronically signed by José Luis Ji 05-13-2025 04:56 AM
[2025-05-13] MEDS ORDERED: GLUCAGON FOR INJ 1 MG VIAL SQ PRN ×2 (06:04→08:44)
[2025-05-13] MEDS ORDERED: GLUCOSE 40% GEL 15 GM TUBE PO PRN ×2 (06:04→08:44)
[2025-05-13] MEDS ORDERED: ONDANSETRON INJ 2 MG/ML 2 ML VIAL IV PRN (06:04)
[2025-05-13] MEDS ORDERED: PHARMACIST DISCHARGE MED REC CONSULT PRN (06:04)
[2025-05-13] MEDS ORDERED: DOCUSATE SODIUM 100 MG CAP PO PRN (06:04)
[2025-05-13] MEDS ORDERED: CARBOHYDRATES FOR HYPOGLYCEMIA PO PRN ×2 (06:04→08:44)
[2025-05-13] MEDS ORDERED: GLUCOSE 10 TAB/TUBE PO PRN ×2 (06:04→08:44)
[2025-05-13] MEDS ORDERED: DEXTROSE 50% 50 ML SYRINGE IV PRN ×2 (06:04→08:44)
[2025-05-13] MEDS ORDERED: LABETALOL HCL IV 5 MG/ML 20ML IV PRN (06:04)
[2025-05-13] MEDS: ROSUVASTATIN CALCIUM 20 MG TAB PO STA (06:05)
[2025-05-13] MEDS: metFORMIN HCL 500 MG TAB PO SCH (08:40)
[2025-05-13] MEDS: INSULIN ASPART PER UNIT CHARGE SC SCH ×2 (08:43→12:57)
[2025-05-13] MEDS ORDERED: methylPREDNISolone 10 mg/mL (For Ped Dose < 7mg) IV SCH (08:45)
[2025-05-13] MEDS: methylPREDNISolone 60 MG in SYRINGE 0 ML IV SCH (10:42)
[2025-05-13] MEDS: METOPROLOL TARTRATE 50 MG TAB PO SCH (10:42)
[2025-05-13] MEDS: SODIUM CHLORIDE 0.9% 1,000 ML IV SCH (11:29)
--- NOTE | 2025-05-13 12:40 | Hospitalist Progress Note ---
Date of Service May 13, 2025 Assessment & Plan (1) Cervical radiculopathy: Plan: The patient has MRI documented HNP at the C4-C5 level, C6-C7 level. There is also cervical stenosis at C5-6 level. He will need surgical intervention. Orthopedic spine consultation has been requested. He is now on steroid therapy. (2) Acute right-sided weakness: Plan: Intermittent. Due to cervical radiculopathy (3) Stroke-like symptom: Plan: Acute CVA has been ruled out (4) Hypertension: Plan: Metoprolol has been started for better heart rate and blood pressure control. IV hydralazine as needed Plan Patient is a 50-year-old male with past medical history of hypertension, type II DM, HLD, COPD, BERNADETTE, GERD. Patient presented due to acute worsening of right- sided numbness and weakness since . Patient is unable to close his right hand and has both upper and lower extremity numbness and weakness resulting in difficulty with ambulation. He is being admitted for stroke workup including brain MRI and further workup of his cervical spine including MRI. Parenteral steroid therapy. Supportive care. C-spine surgery will be undertaken this admission. Admission and Anticipated Discharge Date Admission Date: May 13, 2025 Subjective Alert and oriented. It appears the patient is suffering from cervical spine stenosis producing a right cervical radiculopathy. MRI scan reveals herniated nucleus pulposus at the C4-C5 level and C6-C7 level along with stenosis at C5-C6 level. Case discussed with Dr. Villareal, orthopedic spine surgeon. The patient will need surgical intervention sometime this hospitalization. He is now on parenteral steroid therapy. Metformin has been placed on hold. He is aware that he will receive basal insulin therapy temporarily to control his glucose which will be aggravated by the steroid therapy. Metoprolol has been started for better heart rate and blood pressure control Review of Systems 2 Review of Systems: Constitutionalno fever or chills ENTno blurred vision, no double vision, no epistaxis, no sore throat Neck-right neck pain with extension and head turning Respiratoryno cough, no wheezing, no shortness of breath Cardiacno palpitations, no chest pain, no syncope Brandy nausea, vomiting, diarrhea, melena, hematochezia GUno urinary retention, no urinary incontinence, no dysuria, no hematuria Musculoskeletalno joint pain, no muscle tenderness Skinno bruising, no rashes, no pruritus Neuroright arm and leg weakness and pain with neck extension and head turning. Intermittent right-sided paresthesia. Psychno depression, no anxiety Physical Exam 2 Physical Exam: General-alert and oriented x3, no fever, no chills HEENT-head atraumatic and normocephalic, pupils equal and reactive to light, extraocular muscles intact Neck-no lymphadenopathy or thyromegaly, trachea midline. He does have cervical spine discomfort with head turning Chest-clear to auscultation. No rales, wheezing or rhonchi Cardiac-regular rate and rhythm, normal S1 and S2 Abdomen-normal bowel sounds, no hepatosplenomegaly Extremities-no cyanosis, clubbing, or edema Neuro-cranial nerves II through XII intact, motor and sensory function within normal limits, strength symmetrical, no focal deficits Psych-normal affect, normal mood Results & Data Results & Data Vital Signs (Past 12 Hours) Vital Signs Temp Pulse Pulse Resp BP BP BP 05/13/25 11:48 36.5 C 89 18 181/110 H 05/13/25 08:14 36.5 C 87 19 177/96 H 05/13/25 07:27 96 H 05/13/25 06:06 36.4 C L 96 H 16 175/110 H 05/13/25 02:30 93 H 14 05/13/25 02:24 84 14 179/112 H 05/13/25 01:33 90 23 172/107 H 05/13/25 01:03 81 19 152/111 H Pulse Ox O2 Del Method 05/13/25 11:48 94 Room Air 05/13/25 08:14 93 Room Air 05/13/25 07:27 05/13/25 06:06 94 Room Air 05/13/25 02:30 96 05/13/25 02:24 96 05/13/25 01:33 96 05/13/25 01:03 94 Laboratory Results 05/12/25 21:25 05/12/25 21:25 PG Care Time/CCT Total # of Minutes Spent Total Time Spent with Patient: Total time spent is greater than 50% in coordination of care (as documented) at patient's floor/unit and/or counseling patient: Coding Level of Care Code 62216 SUB INP/OBS CARE 3/50MIN Diagnoses Cervical radiculopathy M54.12 Acute right-sided weakness R53.1 Stroke-like symptom R29.90 Hypertension I10
--- NOTE | 2025-05-13 12:57 | Orthopedic Consultation ---
Date of Consultation May 13, 2025 Assessment & Plan (1) Myelopathy concurrent with and due to spinal stenosis of cervical region: MRI of the cervical spine available for review. Performed at [facility] and dated 05/13/2025. It does demonstrate evidence of severe cervical spinal stenosis C5-C6 and to a lesser degree C6-C7. There is marked cord compression with evidence of myelomalacia. Plan I had a lengthy discussion today with the patient and his reviewing his clinical presentation and treatment recommendations. In light of his advanced neurologic decline and evidence of myelomalacia I am recommending surgical intervention. Would require an anterior cervical corpectomy of C6 to adequately and safely decompress the canal. Risk benefits pros cons and alternatives were all in detail. Risk include but not limited to anesthesia blindness stroke paralysis nerve damage blood loss requiring transfusion infection requiring reoperation dysphonia dysphagia. Will try to maximize his health status. Plan for surgery as soon as possible. History of Present Illness Reason for Consultation: Arm and leg weakness Attending Physician: Sabas Gonzalez MD History of Present Illness This is a 50-year-old [id number] male who presents the emergency room yesterday with a marked decline in status. He is noticing significant difficulty using his right upper extremity with chronic persistent numbness and tingling. Left arm is less affected. He is noting marked difficulty with ambulation and balance. 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 He states his fine motor skills are compromised and he drops things consistently. The symptoms have been present for many months with a significant decline over the past few days. He denies any specific trauma fall or event. Allergies Allergy/AdvReac Type Severity Reaction Status Date / Time No Known Allergies Allergy Verified 04/08/24 07:36 Home Medications Medication Instructions Recorded Confirmed Type ibuprofen 800 mg tablet 800 mg PO Q8H PRN Pain 02/11/24 05/13/25 History lisinopril 20 mg tablet 20 mg PO HS 02/11/24 05/13/25 History metformin 1,000 mg tablet 1,000 mg PO BID 02/11/24 05/13/25 History metoprolol succinate 50 mg 50 mg PO HS 02/11/24 05/13/25 History tablet,extended release 24 hr pantoprazole 40 mg tablet,delayed 40 mg PO HS 02/11/24 05/13/25 History release rosuvastatin 20 mg tablet 20 mg PO HS 02/11/24 05/13/25 History semaglutide 1 mg/dose (4 mg/3 mL) 1 mg subcut Q7D 02/11/24 05/13/25 History subcutaneous pen injector (Ozempic) umeclidinium 62.5 mcg-vilanterol 1 inh inhalation HS 02/11/24 05/13/25 History 25 mcg/actuation powdr for inhalation (Anoro Ellipta) tramadol 50 mg tablet 50 - 100 mg (1 - 2 x 50 mg) PO Q6H 04/08/24 05/13/25 Rx PRN pain #15 tabs bumetanide 1 mg tablet mg 05/13/25 History umeclidinium 62.5 mcg-vilanterol inhalation 05/13/25 History 25 mcg/actuation powdr for inhalation (Anoro Ellipta) Patient History Medical History Hx MRSA infection "[facility]" "randomly gets wounds on his legs and has to f/u w/wound care." last dx thru PCP in [place]. thinks about 6 months ago, ~07/2023". Per [facility] infection control on 02/14/24, he does not have a MRSA infection within the last year. Diabetes mellitus, type 2 NIDDM Hx of migraines History of anesthesia complications 2004 @[facility] [place], "had to use shock paddles to bring pt out of anesthesia" 2011 @[facility] following endoscopy procedure, "had to use paddles to bring him out of anesthesia again" Sleep apnea CPAP-unable to tolerate, sleeps sitting up COPD (chronic obstructive pulmonary disease) daily inhaler; controlled, stable per pt; last albuterol inhaler use 1 month ago GERD (gastroesophageal reflux disease) controlled, stable per pt Hypertension variable per pt Hyperlipidemia Surgical History History of esophagogastroduodenoscopy (EGD) w/dialation History of lumbar fusion 2004, [facility]. Social History Smoking Status: Current every day smoker Tobacco Type: Cigarettes Cigarettes Per Day: 20; Second Hand Exposure: No; Do You Dip or Chew Tobacco: No; Tobacco Cessation Education Requested by Patient: No Hx Alcohol Use: No Hx Substance Use: Yes Last Used Substance: Unknown Last Used Substance Other:: last use 11/2023-advised Preferred Language: Irish Communication Ability: Effective Social Work Associate Required: No Beliefs That Will Affect Care: None Current Living Situation: Alone Other Information That Helps Us Care for You: No Feels Safe at Home: Yes Safety Concerns: Feels Safe At This Time Assistive Devices: Cane Physical Exam Physical Exam: On exam he exhibits bilateral Marko sign. He has a marked deficit with right hand grasp intrinsics biceps triceps. Left upper extremity is a 5/5 to detailed testing. He has Lhermitte's phenomenon with cervical extension. Ambulation demonstrates markedly wide unsteady gait. He cannot heel and toe walk without losing his balance. Results & Data Vital Signs (Past 12 Hours) Vital Signs Temp Pulse Pulse Resp BP BP BP 05/13/25 11:48 36.5 C 89 18 181/110 H 05/13/25 08:14 36.5 C 87 19 177/96 H 05/13/25 07:27 96 H 05/13/25 06:06 36.4 C L 96 H 16 175/110 H 05/13/25 02:30 93 H 14 05/13/25 02:24 84 14 179/112 H 05/13/25 01:33 90 23 172/107 H 05/13/25 01:03 81 19 152/111 H Pulse Ox O2 Del Method 05/13/25 11:48 94 Room Air 05/13/25 08:14 93 Room Air 05/13/25 07:27 05/13/25 06:06 94 Room Air 05/13/25 02:30 96 05/13/25 02:24 96 05/13/25 01:33 96 05/13/25 01:03 94
[2025-05-13] MEDS: INSULIN HUMAN NPH SC SCH (16:22)
[2025-05-13] MEDS: ACETAMINOPHEN 325 MG TAB PO PRN (21:48)
[2025-05-13] MEDS: MELATONIN 3 MG TAB PO PRN (21:48)
[2025-05-13] MEDS: PANTOprazole 40 MG TAB PO SCH (21:49)
[2025-05-13] MEDS: UMECLIDINIUM/VILANTEROL 62.5/25MCG 7 PUFFS/INHALER INH SCH (21:49)
[2025-05-13] MEDS: ROSUVASTATIN CALCIUM 20 MG TAB PO SCH (21:49)
[2025-05-13] MEDS: CYCLOBENZAPRINE HCL 10 MG TAB PO STA (23:59)
[2025-05-14] MEDS: FAMOTIDINE 20 MG TAB PO ONE (00:57)
--- NOTE | 2025-05-14 04:01 | Electrocardiogram Report ---
Test Reason : Blood Pressure : */* mmHG Vent. Rate : 89 BPM Atrial Rate : 89 BPM P-R Int : 130 ms QRS Dur : 86 ms QT Int : 368 ms P-R-T Axes : 51 -28 41 degrees QTcB Int : 447 ms Normal sinus rhythm Minimal voltage criteria for LVH, may be normal variant ( R in aVL ) Borderline ECG When compared with ECG of 10-Mar-2024 11:45, QRS axis Shifted left Confirmed by Sinan Carmona ([id number]) on 05/14/2025 4:01:13 AM Referred By: REFERRED SELF Confirmed By: Sinan Carmona
[2025-05-14 07:15] LABS: Hematocrit (blood only) 47.6 % (42.0-52.0); Hemoglobin 16.6 g/dl (14.0-18.0); Mean Corpuscular Hemoglobin 31.6 pg (25.0-34.0); Mean Corpuscular Hgb Conc 34.9 g/dL (32.0-36.0); Mean Corpuscular Volume 90.5 fL (80.0-100.0); Mean Platelet Volume 9.7 fL (9.4-12.4); Platelet Count 286 K/uL (130-400); RDW Coefficient of Variation 12.3 % (11.5-14.5); RDW Standard Deviation 40.3 fL (36.4-46.3); Red Blood Count 5.26 M/uL (4.70-6.10); White Blood Count 16.81 K/ul (4.8-10.8)
[2025-05-14 07:31] LABS: Albumin Globulin Ratio 1.3 (0.9-2); Albumin Level 4.1 gm/dl (3.4-5.0); BUN Creatinine Ratio 20.3 (10-20); Bilirubin,Total 0.5 mg/dl (0.2-1.0); Calcium 9.6 mg/dl (8.6-10.3); Creatinine Clr Calc Pharmacy 189.5 ml/min; Globulin 3.1 gm/dl (2.5-4.0); Magnesium 1.8 mg/dl (1.7-2.4); Potassium 4.3 mmol/L (3.5-5.1); Total Protein 7.2 gm/dl (6.0-8.3)
[2025-05-14 07:44] LABS: Basophils # (auto) 0.03 K/uL (0.00-0.20); Basophils % (auto) 0.2 %; Immature Granulocytes # (auto) 0.09 K/uL (0.01-0.20); Immature Granulocytes % (auto) 0.5 %; Lymphocytes # (auto) 1.07 K/uL (1.20-3.40); Lymphocytes % (auto) 6.4 %; Monocytes # (auto) 0.42 K/uL (0.11-0.59); Monocytes % (auto) 2.5 %; Neutrophils % (auto) 90.4 %
--- NOTE | 2025-05-14 08:31 | Orthopedic Progress Note ---
Date of Service May 14, 2025 Assessment & Plan (1) Myelopathy concurrent with and due to spinal stenosis of cervical region: Plan: All questions have been answered in detail between the patient and his . Will currently move forward with planning with surgical intervention tomorrow. Will make n.p.o. after midnight. Admission and Anticipated Discharge Date Admission Date: May 13, 2025 Subjective No change in symptoms. Currently planning to proceed with surgical intervention tomorrow on his cervical spine. Review of Systems Review of Systems: All systems reviewed & are unremarkable except as noted in HPI & below Physical Exam Physical Exam: Unchanged Results & Data Vital Signs (Past 12 Hours) Vital Signs Temp Pulse Pulse Resp BP BP Pulse Ox 05/14/25 08:12 36.3 C L 77 19 153/83 H 97 05/14/25 07:00 88 05/14/25 03:31 36.5 C 76 16 163/98 H 96 05/13/25 23:01 36.5 C 95 H 16 174/95 H 97 05/13/25 21:48 90 O2 Del Method 05/14/25 08:12 Room Air 05/14/25 07:00 05/14/25 03:31 Room Air 05/13/25 23:01 Room Air 05/13/25 21:48
[2025-05-14] MEDS: INSULIN HUMAN NPH SC STA (09:41)
[2025-05-14] MEDS: oxyCODONE HCL IR 5 MG TAB (IMMEDIATE RELEASE) PO PRN (12:34)
--- NOTE | 2025-05-14 12:44 | Hospitalist Progress Note ---
Date of Service May 14, 2025 Assessment & Plan (1) Cervical radiculopathy: Plan: The patient has MRI documented HNP at the C4-C5 level, C6-C7 level. There is also cervical stenosis at C5-6 level. He will need surgical intervention. Orthopedic spine consultation and recommendations appreciated. Surgical intervention scheduled for tomorrowMay 15. Parenteral steroid therapy has been down titrated today, May 14 (2) Acute right-sided weakness: Plan: Intermittent. Due to cervical radiculopathy. The patient states he has improved with parenteral steroid therapy (3) Stroke-like symptom: Plan: Acute CVA has been ruled out (4) Hypertension: Plan: Metoprolol has been started for better heart rate and blood pressure control. IV hydralazine as needed (5) Steroid-induced hyperglycemia: Plan: NPH insulin twice daily. Dosage was uptitrated today, May 14. Plan Continue parenteral steroid therapy. Surgical intervention tomorrow, May 15. Supportive care. Admission and Anticipated Discharge Date Admission Date: May 13, 2025 Subjective Alert and oriented. He thinks he is feeling a little better. Orthopedic spine entry noted. He will undergo surgery on his neck tomorrow, May 15. NPH dosage uptitrated today, May 14, due to hyperglycemia brought on by steroid therapy. Methylprednisolone dosage has been down titrated today, May 14. Review of Systems 2 Review of Systems: Constitutionalno fever or chills ENTno blurred vision, no double vision, no epistaxis, no sore throat Neck-right neck pain with extension and head turning Respiratoryno cough, no wheezing, no shortness of breath Cardiacno palpitations, no chest pain, no syncope Brandy nausea, vomiting, diarrhea, melena, hematochezia GUno urinary retention, no urinary incontinence, no dysuria, no hematuria Musculoskeletalno joint pain, no muscle tenderness Skinno bruising, no rashes, no pruritus Neuroright arm and leg weakness and pain with neck extension and head turning. Intermittent right-sided paresthesia. Psychno depression, no anxiety Physical Exam 2 Physical Exam: General-alert and oriented x3, no fever, no chills HEENT-head atraumatic and normocephalic, pupils equal and reactive to light, extraocular muscles intact Neck-no lymphadenopathy or thyromegaly, trachea midline. He does have cervical spine discomfort with head turning Chest-clear to auscultation. No rales, wheezing or rhonchi Cardiac-regular rate and rhythm, normal S1 and S2 Abdomen-normal bowel sounds, no hepatosplenomegaly Extremities-no cyanosis, clubbing, or edema Neuro-cranial nerves II through XII intact, motor and sensory function within normal limits, strength symmetrical, no focal deficits Psych-normal affect, normal mood Results & Data Results & Data Vital Signs (Past 12 Hours) Vital Signs Temp Pulse Pulse Resp BP BP Pulse Ox 05/14/25 11:59 36.6 C 79 18 166/81 H 95 05/14/25 09:19 05/14/25 08:12 36.3 C L 77 19 153/83 H 97 05/14/25 07:00 88 05/14/25 03:31 36.5 C 76 16 163/98 H 96 O2 Del Method 05/14/25 11:59 Room Air 05/14/25 09:19 Room Air 05/14/25 08:12 Room Air 05/14/25 07:00 05/14/25 03:31 Room Air Laboratory Results 05/14/25 06:58 05/14/25 06:58 PG Care Time/CCT Total # of Minutes Spent Total Time Spent with Patient: Total time spent is greater than 50% in coordination of care (as documented) at patient's floor/unit and/or counseling patient: Coding Level of Care Code 16066 SUB INP/OBS CARE 3/50MIN Diagnoses Cervical radiculopathy M54.12 Acute right-sided weakness R53.1 Stroke-like symptom R29.90 Hypertension I10 Steroid-induced hyperglycemia R73.9; T38.0X5A
[2025-05-14] MEDS: methylPREDNISolone 40 MG in SYRINGE 0 ML IV SCH (13:21)
[2025-05-14] MEDS ORDERED: methylPREDNISolone 10 mg/mL (For Ped Dose < 7mg) IV SCH (14:00)
[2025-05-14] MEDS: INSULIN HUMAN NPH SC SCH (21:50)
[2025-05-14] MEDS: CALCIUM CARBONATE 500 MG CHEWABLE TAB PO PRN (22:13)
[2025-05-15 06:46] LABS: Hematocrit (blood only) 46.6 % (42.0-52.0); Hemoglobin 16.7 g/dl (14.0-18.0); Mean Corpuscular Hemoglobin 32.2 pg (25.0-34.0); Mean Corpuscular Hgb Conc 35.8 g/dL (32.0-36.0); Mean Corpuscular Volume 89.8 fL (80.0-100.0); Mean Platelet Volume 9.7 fL (9.4-12.4); Platelet Count 342 K/uL (130-400); RDW Coefficient of Variation 12.3 % (11.5-14.5); RDW Standard Deviation 40.6 fL (36.4-46.3); Red Blood Count 5.19 M/uL (4.70-6.10); White Blood Count 23.84 K/ul (4.8-10.8)
[2025-05-15 07:00] LABS: Albumin Globulin Ratio 1.4 (0.9-2); Albumin Level 4.2 gm/dl (3.4-5.0); BUN Creatinine Ratio 29.8 (10-20); Bilirubin,Total 0.4 mg/dl (0.2-1.0); Calcium 9.6 mg/dl (8.6-10.3); Creatinine Clr Calc Pharmacy 196.1 ml/min; Globulin 3.1 gm/dl (2.5-4.0); Potassium 4.3 mmol/L (3.5-5.1); Total Protein 7.3 gm/dl (6.0-8.3)
[2025-05-15 07:04] LABS: Basophils # (auto) 0.03 K/uL (0.00-0.20); Basophils % (auto) 0.1 %; Immature Granulocytes # (auto) 0.16 K/uL (0.01-0.20); Immature Granulocytes % (auto) 0.7 %; Lymphocytes # (auto) 1.62 K/uL (1.20-3.40); Lymphocytes % (auto) 6.8 %; Monocytes # (auto) 0.94 K/uL (0.11-0.59); Monocytes % (auto) 3.9 %; Neutrophils # (auto) 21.09 K/uL (1.40-6.50); Neutrophils % (auto) 88.5 %
[2025-05-15] MEDS ORDERED: Nursing to Pharmacy Communication SCH ×2 (09:00→19:00)
[2025-05-15] MEDS: INSULIN ASPART PER UNIT CHARGE SC SCH ×2 (09:08→21:24)
--- NOTE | 2025-05-15 11:23 | Hospitalist Progress Note ---
Date of Service May 15, 2025 Assessment & Plan (1) Cervical radiculopathy: Plan: Associated with cervical myelopathy. The patient has MRI documented HNP at the C4-C5 level, C6-C7 level. There is also cervical stenosis at C5-6 level. He will have surgical intervention today, May 15. Orthopedic spine consultation and recommendations appreciated. Parenteral steroid therapy has helped his symptoms but has caused hyperglycemia unfortunately. However, he is not diabetic and this will be transient. (2) Acute right-sided weakness: Plan: Improved with parenteral steroid therapy. Due to cervical radiculopathy/myelopathy. (3) Stroke-like symptom: Plan: Acute CVA has been ruled out (4) Hypertension: Plan: Metoprolol has been started for better heart rate and blood pressure control. Improved overall IV hydralazine as needed (5) Steroid-induced hyperglycemia: Plan: NPH insulin twice daily. The patient is not diabetic. Glucose levels should normalize once steroid therapy has been discontinued. Plan The patient hopes to be discharged to home tomorrow, May 16 Admission and Anticipated Discharge Date Admission Date: May 13, 2025 Subjective Alert and oriented. The patient was seen preoperatively. His cervical myelopathy/radiculopathy has improved with parenteral steroid therapy. is at the bedside. He is anxious to go home. Hopefully tomorrow, May 16. Glucose is mildly elevated due to steroid-induced hyperglycemia. He is temporarily on NPH insulin twice daily while on parenteral steroid therapy. He eventually will be switched back to his oral metformin at discharge. Review of Systems 2 Review of Systems: Constitutionalno fever or chills ENTno blurred vision, no double vision, no epistaxis, no sore throat Neck-right neck pain with extension and head turning Respiratoryno cough, no wheezing, no shortness of breath Cardiacno palpitations, no chest pain, no syncope Brandy nausea, vomiting, diarrhea, melena, hematochezia GUno urinary retention, no urinary incontinence, no dysuria, no hematuria Musculoskeletalno joint pain, no muscle tenderness Skinno bruising, no rashes, no pruritus Neuroright arm and leg weakness and pain with neck extension and head turning. Intermittent right-sided paresthesia. Psychno depression, no anxiety Physical Exam 2 Physical Exam: General-alert and oriented x3, no fever, no chills HEENT-head atraumatic and normocephalic, pupils equal and reactive to light, extraocular muscles intact Neck-no lymphadenopathy or thyromegaly, trachea midline. He does have cervical spine discomfort with head turning Chest-clear to auscultation. No rales, wheezing or rhonchi Cardiac-regular rate and rhythm, normal S1 and S2 Abdomen-normal bowel sounds, no hepatosplenomegaly Extremities-no cyanosis, clubbing, or edema Neuro-cranial nerves II through XII intact, motor and sensory function within normal limits, strength symmetrical, no focal deficits Psych-normal affect, normal mood Results & Data Results & Data Vital Signs (Past 12 Hours) Vital Signs Temp Pulse Pulse Resp BP BP Pulse Ox 05/15/25 07:56 36.5 C 67 18 158/88 H 97 05/15/25 07:21 66 05/15/25 04:50 36.4 C L 77 17 157/97 H 97 O2 Del Method 05/15/25 07:56 Room Air 05/15/25 07:21 05/15/25 04:50 Room Air Laboratory Results 05/15/25 06:31 05/15/25 06:31 PG Care Time/CCT Total # of Minutes Spent Total Time Spent with Patient: Total time spent is greater than 50% in coordination of care (as documented) at patient's floor/unit and/or counseling patient: Coding Level of Care Code 37977 SUB INP/OBS CARE 2/35MIN Diagnoses Cervical radiculopathy M54.12 Acute right-sided weakness R53.1 Stroke-like symptom R29.90 Hypertension I10 Steroid-induced hyperglycemia R73.9; T38.0X5A
[2025-05-15] MEDS ORDERED: ROCURONIUM BROMIDE 10 MG/ML 5 ML VIAL IV ONE ×3 (13:15→15:59)
[2025-05-15] MEDS ORDERED: MIDAZOLAM HCL 1 MG/ML 2ML VIAL ONE (13:15)
[2025-05-15] MEDS ORDERED: LIDOCAINE 2% 2 ML VIAL/AMP(20MG/ML) INFIL ONE (13:15)
[2025-05-15] MEDS ORDERED: SUGAMMADEX SODIUM 200 MG/2 ML VIAL IV ONE ×2 (13:15→16:40)
[2025-05-15] MEDS ORDERED: PROPOFOL IV EMULSION 10 MG/ML 20 ML VIAL IV ONE ×2 (13:15→15:16)
[2025-05-15] MEDS ORDERED: ONDANSETRON INJ 2 MG/ML 2 ML VIAL ONE (13:15)
[2025-05-15] MEDS ORDERED: fentaNYL citrate PF 100 MCG/2 ML VIAL ONE ×3 (13:15→16:09)
--- NOTE | 2025-05-15 13:22 | Anesthesiology Consultation ---
Date of Service May 15, 2025 Assessment & Plan (1) Encounter for pre-operative examination: Chart Review Chart Review: Acceptable Risk for Surgery History Surgery Operation Date: 05/15/25 07:00 Proposed Procedures p C6 Anterior Cervical Corpectomy, Spinal Cord Monitoring - Edgardo Villareal DO Height/Weight Height: 5 ft 8 in Weight: 116.1 kg Allergies Allergy/AdvReac Type Severity Reaction Status Date / Time No Known Allergies Allergy Verified 04/08/24 07:36 Medications Home Medications Medication Instructions Recorded Confirmed Last Taken ibuprofen 800 mg tablet 800 mg PO Q8H PRN Pain 02/11/24 05/13/25 05/07/25 lisinopril 20 mg tablet 20 mg PO HS 02/11/24 05/13/25 05/07/25 metformin 1,000 mg tablet 1,000 mg PO BID 02/11/24 05/13/25 05/07/25 metoprolol succinate 50 mg 50 mg PO HS 02/11/24 05/13/25 05/07/25 tablet,extended release 24 hr pantoprazole 40 mg tablet,delayed 40 mg PO HS 02/11/24 05/13/25 05/07/25 release rosuvastatin 20 mg tablet 20 mg PO HS 02/11/24 05/13/25 05/07/25 semaglutide 1 mg/dose (4 mg/3 mL) 1 mg subcut Q7D 02/11/24 05/13/25 05/07/25 subcutaneous pen injector (Ozempic) umeclidinium 62.5 mcg-vilanterol 1 inh inhalation HS 02/11/24 05/13/25 05/07/25 25 mcg/actuation powdr for inhalation (Anoro Ellipta) tramadol 50 mg tablet 50 - 100 mg (1 - 2 x 50 mg) PO Q6H 04/08/24 05/13/25 05/07/25 PRN pain #15 tabs bumetanide 1 mg tablet mg 05/13/25 Unknown umeclidinium 62.5 mcg-vilanterol inhalation 05/13/25 Unknown 25 mcg/actuation powdr for inhalation (Anoro Ellipta) Active Medications Generic Name Dose Route Start Last Admin Trade Name Freq PRN Reason Stop Dose Admin Acetaminophen 650 mg 05/13/25 06:04 05/15/25 11:39 Acetaminophen 325 Mg Tab PO 06/12/25 06:03 650 mg Q4H PRN Administration Pain or Fever Calcium Carbonate 500 mg 05/14/25 00:12 05/14/25 22:13 Calcium Carbonate 500 Mg Chewable Tab PO 06/13/25 00:11 500 mg ACHS PRN Administration Indigestion Methylprednisolone 40 mg/ 0.64 mls @ 1.5 mls/min 05/14/25 14:00 05/15/25 06:06 Syringe IV 06/13/25 13:59 1.5 mls/min Q8H CHRISTINE Administration Insulin Aspart 0 units 05/15/25 09:00 05/15/25 11:40 Insulin Aspart Per Unit Charge SC 06/12/25 11:29 2 units Q6 CHRISTINE Administration Insulin Human NPH 10 units 05/14/25 17:45 05/15/25 09:09 Insulin Human Nph SC 06/13/25 17:44 10 units BIDM CHRISTINE Administration Melatonin 3 mg 05/13/25 06:04 05/13/25 21:48 Melatonin 3 Mg Tab PO 06/12/25 06:03 3 mg HS PRN Administration Sleep Metoprolol Tartrate 50 mg 05/13/25 09:00 05/15/25 09:08 Metoprolol Tartrate 50 Mg Tab PO 06/12/25 08:59 50 mg BID CHRISTINE Administration Oxycodone HCl 5 mg 05/14/25 09:12 05/15/25 11:39 Oxycodone Hcl Ir 5 Mg Tab (Immediate Release) PO 05/28/25 09:11 5 mg Q4H PRN Administration Pain Pantoprazole Sodium 40 mg 05/13/25 21:00 05/14/25 22:11 Pantoprazole 40 Mg Tab PO 06/12/25 20:59 40 mg HS CHRISTINE Administration Rosuvastatin Calcium 20 mg 05/13/25 21:00 05/14/25 22:12 Rosuvastatin Calcium 20 Mg Tab PO 06/12/25 20:59 20 mg HS CHRISTINE Administration Umeclidinium/Vilanterol 1 puffs 05/13/25 21:00 05/14/25 22:12 Umeclidinium/Vilanterol 62.5/25mcg 7 Puffs/Inhaler INH 06/12/25 20:59 1 puffs HS CHRISTINE Administration Past Medical History Medical History Hx MRSA infection "[place]" "randomly gets wounds on his legs and has to f/u w/wound care." last dx thru PCP in [place]. thinks about 6 months ago, ~07/2023". Per [facility] infection control on 02/14/24, he does not have a MRSA infection within the last year. Diabetes mellitus, type 2 NIDDM Hx of migraines History of anesthesia complications [facility], "had to use shock paddles to bring pt out of anesthesia" 2011 @[facility] following endoscopy procedure, "had to use paddles to bring him out of anesthesia again" Sleep apnea CPAP-unable to tolerate, sleeps sitting up COPD (chronic obstructive pulmonary disease) daily inhaler; controlled, stable per pt; last albuterol inhaler use 1 month ago GERD (gastroesophageal reflux disease) controlled, stable per pt Hypertension variable per pt Hyperlipidemia Past Surgical History Surgical History (Updated 05/15/25 @ 13:20 by August Alcocer MD) Hx of arthroscopic knee surgery History of esophagogastroduodenoscopy (EGD) w/dialation History of lumbar fusion 2004, [facility]. Social History Smoking Status: Current every day smoker Smoking cigarettes per day: 20 Do You Dip or Chew Tobacco: No Hx Alcohol Use: No Alcohol type: beer alcohol intake frequency: other Hx Substance Use: Yes substance use type: marijuana Last Used Substance: Unknown Last Used Substance Other:: last use 11/2023-advised Physical Exam Vital Signs Last Vital Signs Temp 36.5 C 05/15/25 11:56 Pulse 70 05/15/25 11:56 Resp 20 05/15/25 11:56 BP 162/105 H 05/15/25 11:56 Pulse Ox 95 05/15/25 11:56 O2 Del Method Room Air 05/15/25 12:39 Testing Laboratory Results 05/15/25 06:31 05/15/25 06:31 PT 10.5 Seconds (9.0-12.0) 05/12/25 21:25 INR 1.0 (0.9-1.1) 05/12/25 21:25 APTT 28 Seconds (21-31) 05/12/25 21:25 05/15/25 05/15/25 05/15/25 12:03 09:05 06:05 POC Glucose 172 H 208 H 191 H Echocardiogram Date: 10/23/22 EF: 60% LV Function: normal Valvular Disease: + no significant valvular disease
[2025-05-15] MEDS: LACTATED RINGER'S 1,000 ML IV SCH (13:54)
[2025-05-15] MEDS ORDERED: ATROPINE SULFATE 0.1 MG/ML 10ML SYR IV PRN (14:31)
[2025-05-15] MEDS ORDERED: HYDROmorphone INJ 2 MG/ML SYR/VIAL IV PRN (14:31)
[2025-05-15] MEDS ORDERED: PROMETHAZINE HCL 6.25 MG in SODIUM CHLORIDE 0.9% 50 ML IV PRN (14:31)
[2025-05-15] MEDS ORDERED: ONDANSETRON INJ 2 MG/ML 2 ML VIAL IV PRN ×2 (14:31→18:28)
[2025-05-15] MEDS ORDERED: fentaNYL citrate PF 100 MCG/2 ML VIAL IV PRN (14:31)
[2025-05-15] MEDS ORDERED: ePHEDrine sulfate 50 MG/ML AMP IV PRN (14:31)
[2025-05-15] MEDS ORDERED: LABETALOL HCL IV 5 MG/ML 20ML IV ONE ×3 (14:43→16:26)
--- NOTE | 2025-05-15 14:43 | History & Physical Bridge Note ---
Date of Service May 15, 2025 History & Physical Bridge Note I have examined the patient, reviewed the History & Physical and in the interval since the performance of the History & Physical I have noted the following changes of clinical significance: no changes noted Patient presents with severe cervical spinal stenosis with myeloradiculopathy and marked neurologic decline subsequently recommending urgent C6 corpectomy
[2025-05-15] MEDS: ceFAZolin 2000MG 2,000 MG/15 ML SYR IV ONE (14:54)
[2025-05-15] MEDS: ceFAZolin 2,000 MG/15 ML IV PUSH IV ONE (15:50)
[2025-05-15] MEDS: ceFAZolin 330 MG/ML 1 GM VIAL ONE (15:53)
[2025-05-15] MEDS: FLOSEAL HEMOSTATIC MATRIX 10ML TOP ONE (16:45)
--- NOTE | 2025-05-15 16:51 | Operative Report ---
Post Operative Report Pre & Post Diagnosis Operation Date: 05/15/25 07:00 Pre-Op Diagnosis: Myelopathy concurrent with and due to spinal stenosis of cervical region Post-Op Diagnosis: Myelopathy concurrent with and due to spinal stenosis of cervical region I identified the patient and participated in the time-out.: Yes Procedure Operation Date: 05/15/25 07:00 Actual Procedures #1 anterior cervical corpectomy with bilateral foraminotomies C6. #2 anterior cervical arthrodesis C5-C7. #3 placement of 27 mm Spira cage C5-C7. #4 placement locally harvested morselized autograft combined with os design bone graft and interbody cage. #5 placement of K2 M plate screws from C5-C7. Surgeon Edgardo Villareal, DO [employer] Marlon Jacinto Estimated Blood Loss 20 Findings See Below The patient is 5 foot 8 weighing over 116 kg with a BMI in excess of 38. The patient's body habitus did create significant technical difficulty with positioning exposure and the procedure itself. This added over 50% increase in the operative time. I am recommending a modifier 22. Specimens None Indications This is a 50-year-old male who presents with the above-mentioned diagnosis. Subsequent is here for urgent decompression fusion of the cervical spine. Description of Procedure Patient was met with identified informed consent obtained. Patient was then taken to the operative suite underwent intubation placed in supine position the Frantz table with head Zhu head ordered. All bony prominences well-padded eyes inspected to ensure no external pressure placed upon them. This point the anterior cervical spine was prepped and draped in the normal sterile fashion. The assistance of fluoroscopy identified the C6 vertebral body. A transverse incision was placed along the right anterior aspect of the cervical spine overlying his region. Blunt dissection with assistance of bipolar cautery is performed down to and exposing the anterior cervical spine from C5-C7. Self- retaining retractors placed. Then performed a complete discectomy of C5-C6 up to the uncovertebral and bilaterally followed by complete discectomy of C C6-C7 out to the uncovertebral joints bilaterally. [place] distracting pins were then placed in C5 and C7 to distract across the C6 vertebral body. Complete corpectomy of C6 was then performed including all disc material annular fibers and bilateral foraminotomies for complete decompression. After this was complete the endplates were burred to subcortical bleeding bone and a 27 mm spiral cage filled with loss design bone graft and local autograft tapped into position. Distracting apparatus was removed. All anterior osteophytes burred to smooth cortical surface and a K2 M plate and screws applied with the assistance of fluoroscopy. The incision was then leia irrigated explored to ensure no damage to surrounding structures or remaining bleeding. 10 round ANIKA drain inserted. The incision was then closed with 2 Vicryl in fashion a 4 Monocryl for final skin closure. Steri-Strips sterile dressing placed. Patient waken taken to PACU in stable condition. Please note Marlon joseph was present at the entire procedure and on the patient positioning complex portion of the surgery and final skin closure. I attest to the content of the Intraoperative Record and any orders documented therein. Any exceptions are noted below.
--- NOTE | 2025-05-15 18:08 | Anesthesiology Progress Note ---
Date of Service May 15, 2025 Anesthesia Post Procedure Vital Signs Vital Signs: Temp Pulse Pulse Pulse Resp BP BP 05/15/25 17:50 36.4 C L 73 14 153/85 H 05/15/25 17:40 65 12 157/98 H 05/15/25 17:30 60 12 151/90 H 05/15/25 17:20 36.0 C L 66 16 154/89 H 05/15/25 13:52 191/120 H 05/15/25 13:36 36.5 C 68 20 181/128 H 05/15/25 13:02 63 05/15/25 12:39 05/15/25 11:56 36.5 C 70 20 162/105 H 05/15/25 07:56 36.5 C 67 18 158/88 H 05/15/25 07:21 66 05/15/25 04:50 36.4 C L 77 17 157/97 H 05/14/25 23:15 36.6 C 80 17 167/90 H 05/14/25 21:53 79 05/14/25 20:02 36.5 C 79 17 162/92 H Pulse Ox O2 Del Method O2 Flow Rate 05/15/25 17:50 95 Nasal Cannula 2 05/15/25 17:40 97 Nasal Cannula 2 05/15/25 17:30 97 Nasal Cannula 3 05/15/25 17:20 96 Nasal Cannula 3 05/15/25 13:52 05/15/25 13:36 99 Room Air 05/15/25 13:02 05/15/25 12:39 Room Air 05/15/25 11:56 95 Room Air 05/15/25 07:56 97 Room Air 05/15/25 07:21 05/15/25 04:50 97 Room Air 05/14/25 23:15 95 Room Air 05/14/25 21:53 05/14/25 20:02 95 Room Air Pain Intensity Neck: Pain Intensity: 7 Transfer of Care Handoff Completed per policy Notes Mental Status: alert / awake / arousable and participated in evaluation Patient Amnestic to Procedure: Yes Nausea / Vomiting: adequately controlled Pain: adequately controlled Airway Patency, RR, SpO2: stable & adequate BP & HR: stable & adequate Hydration State: stable & adequate Anesthetic Complications: no major complications apparent
[2025-05-15] MEDS ORDERED: PROMETHAZINE 12.5 MG/50.5 ML BAG IV PRN (18:28)
[2025-05-15] MEDS ORDERED: hydrOXYzine HCl 25 MG TAB PO PRN (18:28)
[2025-05-15] MEDS ORDERED: bisacodyL 10 MG SUPP PR PRN (18:28)
[2025-05-15] MEDS ORDERED: MAGNESIUM HYDROXIDE SUSP 30 ML UDC PO PRN (18:28)
[2025-05-15] MEDS ORDERED: RACEPINEPHRINE 2.25% NEBU SOLN 0.5 ML VIAL INH PRN (18:28)
[2025-05-15] MEDS ORDERED: DO NOT ADMINISTER PNEUMOCOCCAL VACCINE PRN (18:28)
[2025-05-15] MEDS ORDERED: diphenhydrAMINE Capsule 25 MG CAP PO PRN (18:28)
[2025-05-15] MEDS ORDERED: ONDANSETRON 4 MG OD TAB PO PRN (18:28)
[2025-05-15] MEDS ORDERED: LORazepam 0.5 MG TAB PO PRN (18:28)
[2025-05-15] MEDS ORDERED: SOD PHOSPHATE/SOD BIPHOSPHATE ENEMA 132 ML BTL PR PRN (18:28)
[2025-05-15] MEDS ORDERED: METOCLOPRAMIDE HCL INJ 5 MG/ML 2 ML VIAL IV PRN (18:28)
[2025-05-15] MEDS ORDERED: DO NOT ADMINISTER FLU VACCINE PRN (18:28)
[2025-05-15] MEDS ORDERED: FAMOTIDINE 20 MG TAB PO PRN (18:28)
[2025-05-15] MEDS ORDERED: ALUMINUM/MAGNESIUM SUSP 30 ML UDC PO PRN (18:28)
[2025-05-15] MEDS ORDERED: LORazepam 2 MG/1 ML VIAL IV PRN (18:28)
[2025-05-15] MEDS ORDERED: ACETAMINOPHEN 1,000 MG/100 ML VIAL IV PRN (18:28)
[2025-05-15] MEDS ORDERED: NALOXONE HCL 0.4 MG/1 ML VIAL/CARP IV PRN (18:28)
[2025-05-15] MEDS ORDERED: dexAMETHasone 8 MG in SYRINGE 0 ML IV PRN (18:28)
[2025-05-15] MEDS: HYDROmorphone INJ 0.5 MG/0.5 ML SYR IV PRN (18:46)
[2025-05-15] MEDS: dexAMETHasone 6 MG in SYRINGE 0 ML IV SCH (19:31)
[2025-05-15] MEDS: DOCUSATE SODIUM/SENNA 50/8.6MG TAB PO SCH (20:00)
[2025-05-15] MEDS: HYDROmorphone INJ 1 MG/ML SYRINGE IV PRN (21:24)
[2025-05-15] MEDS: ceFAZolin 2000MG 2,000 MG/15 ML SYR IV SCH (22:48)
[2025-05-16] MEDS: POLYETHYLENE (MIRALAX) 17 GM PACK PO SCH (06:09)
--- NOTE | 2025-05-16 08:06 | Fluoroscopy Report ---
FL cervical 2-3V CLINICAL HISTORY: C6 CORPECTOMY COMPARISON STUDY: None FLUOROSCOPY TIME: 14 seconds FLUOROSCOPY IMAGES: 3 EXPOSURE DOSE: 5 mGy FINDINGS: Fluoroscopy was provided for cervical spine surgery. IMPRESSION: Intraoperative fluoroscopy. ACT 112: Negative or not required by law. Electronically signed by: Aaron Ren M.D. 05/16/2025 8:04 AM
[2025-05-16] MEDS: METOPROLOL SUCC 50MG EXT REL TAB PO SCH (09:30)
[2025-05-16] MEDS: hydrALAZINE HCL 20 MG/ML VIAL IV STA (09:45)
[2025-05-16] MEDS: hydrALAZINE HCL 20 MG/ML VIAL IV PRN (09:45)
--- NOTE | 2025-05-16 10:40 | Orthopedic Progress Note ---
Date of Service May 16, 2025 Assessment & Plan (1) Myelopathy concurrent with and due to spinal stenosis of cervical region: Plan: At this time we will maintain the ANIKA drain until tomorrow. He might be a candidate for returning home tomorrow. Admission and Anticipated Discharge Date Admission Date: May 13, 2025 Subjective Patient swallowing well. No hoarseness. Feels his arm and leg symptoms are improved. Physical Exam Physical Exam: On exam he is up and ambulating with a much improved gait. Still prefers to use a cane. Strength is intact to testing upper extremities. Results & Data Vital Signs (Past 12 Hours) Vital Signs Temp Pulse Resp BP Pulse Ox O2 Del Method O2 Flow Rate 05/16/25 08:58 66 20 201/108 H 97 Room Air 05/16/25 07:53 16 95 Room Air 05/16/25 06:58 36.4 C L 66 20 167/97 H 95 Room Air 05/16/25 04:58 36.4 C L 62 16 170/82 H 98 Nasal Cannula 1 05/16/25 03:00 81 18 95 Room Air 05/16/25 02:58 36.6 C 83 17 158/89 H 95 Nasal Cannula 1 05/16/25 00:58 36.5 C 62 16 161/97 H 99 Nasal Cannula 1 05/15/25 23:00 57 L 18 95 Room Air 05/15/25 22:58 36.4 C L 62 16 168/95 H 95 Room Air Queries Orthopedic Spine Obesity: Yes
--- NOTE | 2025-05-16 12:05 | Hospitalist Progress Note ---
Date of Service May 16, 2025 Assessment & Plan (1) Cervical radiculopathy: Plan: Associated with cervical myelopathy. The patient has MRI documented HNP at the C4-C5 level, C6-C7 level. There is also cervical stenosis at C5-6 level. He underwent C-spine surgery on May 15 with anterior cervical corpectomy, bilateral C6 foraminotomies, arthrodesis of C5-C7 and bone grafting. ANIKA drain remains in place with serosanguineous drainage. Orthopedic spine consultation and recommendations appreciated. (2) Acute right-sided weakness: Plan: Improved with surgical intervention and parenteral steroid therapy. Due to cervical radiculopathy/myelopathy present on admission. (3) Stroke-like symptom: Plan: Acute CVA has been ruled out (4) Hypertension: Plan: Metoprolol has been uptitrated for better heart rate and blood pressure control. IV hydralazine was necessary this morning, May 16. (5) Steroid-induced hyperglycemia: Plan: NPH insulin twice daily while hospitalized. Sliding scale coverage. He will resume his usual diabetic management at discharge Plan Anticipate discharge to home tomorrow, May 17 Admission and Anticipated Discharge Date Admission Date: May 13, 2025 Subjective Alert and oriented after undergoing anterior cervical corpectomy, foraminotomies, arthrodesis, placement of cage and bone grafting yesterday, May 15, per Dr. Villareal. Drain remains in place. Systolic blood pressure is elevated today and he has been given intravenous hydralazine which will be given if needed on a as needed basis. Metoprolol has been switched to XL formulation once daily. Glucose [id number] testing 160. He is on NPH temporarily due to steroid therapy and will resume his usual diabetic management at discharge. Hopefully he will be able to go home tomorrow, May 17 Review of Systems 2 Review of Systems: Constitutionalno fever or chills ENTno blurred vision, no double vision, no epistaxis, no sore throat Neck-right neck pain has improved since surgical intervention completed May 15. Respiratoryno cough, no wheezing, no shortness of breath Cardiacno palpitations, no chest pain, no syncope Brandy nausea, vomiting, diarrhea, melena, hematochezia GUno urinary retention, no urinary incontinence, no dysuria, no hematuria Musculoskeletalno joint pain, no muscle tenderness Skinno bruising, no rashes, no pruritus Neuroless right arm and leg weakness since cervical spine surgery. Right upper extremity radiculopathic pain has resolved. Psychno depression, no anxiety Physical Exam 2 Physical Exam: General-alert and oriented x3, no fever, no chills HEENT-head atraumatic and normocephalic, pupils equal and reactive to light, extraocular muscles intact Neck-no lymphadenopathy or thyromegaly, trachea midline. Frantz-Álvarez drain still in place with serosanguineous drainage noted. Chest-clear to auscultation. No rales, wheezing or rhonchi Cardiac-regular rate and rhythm, normal S1 and S2 Abdomen-normal bowel sounds, no hepatosplenomegaly Extremities-no cyanosis, clubbing, or edema Neuro-cranial nerves II through XII intact, motor and sensory function within normal limits, strength symmetrical, no focal deficits Psych-normal affect, normal mood Results & Data Results & Data Vital Signs (Past 12 Hours) Vital Signs Temp Pulse Resp BP Pulse Ox O2 Del Method O2 Flow Rate 05/16/25 11:28 76 16 96 Room Air 05/16/25 10:58 36.8 C 68 18 181/99 H 95 Room Air 05/16/25 08:58 66 20 201/108 H 97 Room Air 05/16/25 07:53 16 95 Room Air 05/16/25 06:58 36.4 C L 66 20 167/97 H 95 Room Air 05/16/25 04:58 36.4 C L 62 16 170/82 H 98 Nasal Cannula 1 05/16/25 03:00 81 18 95 Room Air 05/16/25 02:58 36.6 C 83 17 158/89 H 95 Nasal Cannula 1 05/16/25 00:58 36.5 C 62 16 161/97 H 99 Nasal Cannula 1 Laboratory Results 05/15/25 06:31 05/15/25 06:31 PG Care Time/CCT Total # of Minutes Spent Total Time Spent with Patient: Total time spent is greater than 50% in coordination of care (as documented) at patient's floor/unit and/or counseling patient: Coding Level of Care Code 44725 SUB INP/OBS CARE 3/50MIN Diagnoses Cervical radiculopathy M54.12 Acute right-sided weakness R53.1 Stroke-like symptom R29.90 Hypertension I10 Steroid-induced hyperglycemia R73.9; T38.0X5A
[2025-05-16] MEDS: ceFAZolin 2000MG 2,000 MG/15 ML SYR IV SCH (14:13)
[2025-05-16] MEDS: traMADol HCL 50 MG TABLET PO PRN (17:24)
[2025-05-17 07:26] VITALS: BP 169/112; PULSE 66; RESP 16; TEMP 97.7; O2SAT 97
[2025-05-17] MEDS: ACETAMINOPHEN 500 MG TAB PO PRN (08:04)
--- NOTE | 2025-05-17 08:34 | Orthopedic Progress Note ---
Date of Service May 17, 2025 Assessment & Plan (1) Myelopathy concurrent with and due to spinal stenosis of cervical region: Plan: Sabas is postoperative day 2 status post C6 corpectomy secondary to cervical myelopathy. He from a spine standpoint he is orthopedically stable for discharge. Admission and Anticipated Discharge Date Admission Date: May 13, 2025 Subjective Sabas is postoperative day 2 status post C6 corpectomy secondary to myelopathy. He is made great improvement. Arm and leg strength improving. Balance is improving. He has had a bowel movement. ANIKA drain output last shift is 10 cc. Denies any dysphonia. Denies dysphagia. Yesterday in physical therapy [place] 150 feet. Review of Systems Review of Systems: All systems reviewed & are unremarkable except as noted in HPI & below Physical Exam Physical Exam: He sitting on the side of the bed eating breakfast in no acute distress Alert and oriented x 3 strength is 5/5 bilateral upper extremities Incision is soft and supple Results & Data Vital Signs (Past 12 Hours) Vital Signs Temp Pulse Pulse Resp BP Pulse Ox O2 Del Method 05/17/25 07:25 36.5 C 66 16 169/112 H 97 Room Air 05/17/25 07:09 77 18 95 Room Air 05/17/25 03:00 36.6 C 69 18 161/89 H 97 Room Air 05/17/25 02:13 73 18 96 Room Air 05/16/25 23:30 36.5 C 79 16 151/84 H 94 Room Air 05/16/25 23:26 74 18 96 Room Air 05/16/25 22:49 36.5 C 75 16 149/82 H 96 Room Air Queries Orthopedic Spine Obesity: Yes
--- NOTE | 2025-05-17 09:49 | Discharge Summary ---
Discharge Summary Date of Service May 17, 2025 Principal Dx & Hospital Course #1 = Principal Diagnosis (1) Cervical radiculopathy: Associated with cervical myelopathy. The patient had MRI documented HNP at the C4-C5 level, C6-C7 level. Also cervical stenosis at C5-6 level. He underwent C-spine surgery on May 15 with anterior cervical corpectomy, bilateral C6 foraminotomies, arthrodesis of C5-C7 and bone grafting. ANIKA drain will be removed today, May 17. Orthopedic spine consultation and recommendations appreciated. (2) Acute right-sided weakness: Improved with surgical intervention and parenteral steroid therapy. Due to cervical radiculopathy/myelopathy present on admission. (3) Stroke-like symptom: Acute CVA has been ruled out (4) Hypertension: Metoprolol has been uptitrated for better heart rate and blood pressure control. Amlodipine 5 mg daily started today, May 17. (5) Steroid-induced hyperglycemia: NPH insulin twice daily while hospitalized. Sliding scale coverage. He will resume his usual diabetic management at discharge Plan Home with home health services today, May 17. A prescription for a wheeled walker was provided to the patient at discharge. Admission HPI Per Admitting Provider Patient is a 50-year-old male with past medical history of hypertension, type II DM, HLD, COPD, BERNADETET, GERD. Patient presented due to acute worsening of right- sided numbness and weakness since . Patient is unable to close his right hand and has both upper and lower extremity numbness and weakness resulting in difficulty with ambulation. He is being admitted for stroke workup including brain MRI and further workup of his cervical spine including MRI. Patient seen at bedside with his girlfriend present. He stated for several months he has been having issues with numbness in his right upper extremity. With his PCP he has had a nerve conduction test as they thought his right upper extremity weakness was from a pinched nerve. He was prescribed gabapentin in January which seemed to help until more recently. On he developed significant right sided numbness and pain which radiated from his neck/jaw down his arm into his right leg. He has pain with chewing. He uses a cane at baseline and has been having significant difficulty ambulating. He did just have his left knee replaced in February as well. Patient stated he was going to [place] on vacation so he went on vacation and persisted through the symptoms. When he returned home yesterday he decided. Patient stated he cannot lay down for an MRI because it is of his sleep apnea and is working with his insurance to have a standing MRI in [place] however it has not yet been authorized. He supposed to have an MRI of his cervical spine due to these ongoing symptoms. He stated he has a history of lumbar stenosis and has had lumbar surgery over no recent imaging of his back. His girlfriend at bedside stated he has had intermittent slurred speech over the past 48 to 72 hours however nothing that persists. Patient denies any recent facial droop, vision changes, hearing loss, dizziness, headaches, chest pain, shortness of breath, nausea, vomiting, diarrhea, urinary or bowel incontinence. Patient is a current smoker smoking approximately 1 to 1-1/2 pack of cigarettes per day, declines nicotine patch at this time. He denies alcohol use. He does have a CPAP for sleep apnea however does not use it. He has not had any home medications since because he forgot them on vacation. He wishes to be full code. Patient is agreeable to admission and potential MRI with Ativan and oxygen during MRI. Discharge Exam General-alert and oriented x3, no fever, no chills HEENT-head atraumatic and normocephalic, pupils equal and reactive to light, extraocular muscles intact Neck-no lymphadenopathy or thyromegaly, trachea midline. Frantz-Álvarez drain still in place with serosanguineous drainage noted. Chest-clear to auscultation. No rales, wheezing or rhonchi Cardiac-regular rate and rhythm, normal S1 and S2 Abdomen-normal bowel sounds, no hepatosplenomegaly Extremities-no cyanosis, clubbing, or edema Neuro-cranial nerves II through XII intact, motor and sensory function within normal limits, strength symmetrical, no focal deficits Psych-normal affect, normal mood Discharge Plan Discharge Items Patient Disposition: Home - Self-Care Reason For Visit: CERVICAL RADICULPATHY, CERVICAL STENOSIS Discharge Diagnosis: Cervical spinal stenosis with myeloradiculopathy Condition on Discharge: Good Activity: As commented below Lifting: No more than 5 pounds Bathing Comment: may shower 05/17 Weightbearing: Full weightbearing Non-emergency contact: Primary Care Provider Call non-emergency contact if: you have any medication questions Follow-up/Referrals: Page Barr CRNP [Primary Care Provider] - Diet: Carb Consistent or DM2 Addtl Attending Provider Instructions: ACTIVITY RECOMMENDATIONS: SELF CARE INSTRUCTIONS AFTER CERVICAL FUSIONS 1. No smoking. Smoking drastically decreases the chance of a solid fusion. 2. No bending, lifting more than 5 pounds, or twisting (roll like a log when turning in bed). 3. You may shower 3 days after surgery. Thoroughly dry wound. Do not soak in the tub. 4. Cervical collar: Must be worn at all times including sleeping. You may remove the brace only to bath, eat and if you are sitting in a recliner. 5. Please walk as much as you can for exercise. Gradually increase the distance that you walk as your endurance increases. 6. You may return to previous diet. SPECIAL CARE INSTRUCTIONS: VERY IMPORTANT TO READ AND REVIEW A. Do not take any anti-inflammatory medications (i.e. Indocin, Advil, Aspirin, Naprosyn, Aleve, Motrin, etc.) as these may inhibit the chance of a solid fusion. Tylenol is okay to take. B. Your surgical incision has been closed with a cosmetic suture under the skin that will dissolve in about 6 weeks. In 14 days, you can use a pair of clean scissors and cut the suture that is left outside of the skin at the ends of your incision. C. Complications are uncommon, but please contact us if you have any signs or symptoms of: 1. wound infection (fever higher than 102.5 degrees F, redness, separation of wound, drainage, or increasing pain from the incision) 2. blood clots in legs (pain, swelling, redness and warmth in legs) 3. urinary tract infection (fever higher than 102.5 degrees, burning upon urination or increased frequency of urination) 4. nerve problems (inability to walk on your toes or heels, numbness, loss of bowel or bladder control) 5. any other symptoms that concern you. D. Please call the office at if you have any concerns or questions about your operation or recovery. MANAGING PAIN AFTER SPINAL SURGERY 1. Narcotic medication is intended for short-term use and will be provided for surgical pain. Surgical pain usually lasts for a period of 4-6 weeks. Narcotic medication includes Percocet, Vicodin, Darvocet, Tylenol #3 or Lortab. 2. Longer-term pain is more appropriately treated with non-narcotic medication such as Tylenol ES. 3. Muscle spasm is not appropriately treated with narcotics. Muscle relaxers such as Soma, Flexeril or Skelaxin can be used along with Tylenol ES. 4. Remember that we all live with some "aches and pains". This is not unusual or uncommon after an injury or as we get older. 5. We will provide appropriate medication within the normal guidelines of their prescribed use. We will also be very cautious and aware of potential abuse and extended duration of patients' medication needs. 6. Please allow 2-3 days to process refills. Prescriptions will not be mailed but must be picked up at the office. FOLLOW UP VISIT: Keep your scheduled follow-up appointment. Any questions, please call the office at . Metoprolol XL and amlodipine are new medications for blood pressure control. Prescriptions have been sent to your pharmacy at [facility] in [place]. Home health services have been requested Pending Studies at Discharge: No Stand-Alone Forms: My [facility], Smoking Cessation Medications and DC Order Prescriptions: New metoprolol succinate 50 mg Tablet Extended Release 24 Hr 100 mg PO QAM Qty: 30 0RF amlodipine 5 mg tablet 5 mg PO DAILY Qty: 30 0RF metoprolol succinate 100 mg tablet extended release 24 hr 100 mg PO DAILY Qty: 30 0RF Continued ibuprofen 800 mg Tablet 800 mg PO Q8H PRN (Reason: Pain) lisinopril 20 mg Tablet 20 mg PO HS pantoprazole 40 mg Tablet,Delayed Release (Dr/Ec) 40 mg PO HS metformin 1,000 mg Tablet 1,000 mg PO BID rosuvastatin 20 mg Tablet 20 mg PO HS umeclidinium-vilanterol [Anoro Ellipta] 62.5-25 mcg/actuation Blister With Device 1 inh INHALATION HS Ozempic 1 mg/dose (4 mg/3 mL) Pen Injector 1 mg SUBCUT Q7D Patient Comments: sundays tramadol 50 mg tablet 50 - 100 mg PO Q6H PRN (Reason: pain) Qty: 15 0RF Rx Instructions: initial therapy, supervising dr jessa serrano. max 5 tabs in 24 hours bumetanide 1 mg tablet umeclidinium-vilanterol [Anoro Ellipta] 62.5-25 mcg/actuation blister with device INHALATION Discontinued metoprolol succinate 50 mg Tablet Extended Release 24 Hr 50 mg PO HS Discharge Orders: Discharge Order (Routine); Ordered 05/17/25 Ordered By: Sabas Gonzalez Admission Data Admit Date/Time: 05/13/25 08:42 Attending Provider: Sabas Gonzalez Admit Provider: Sabas Gonzalez Primary Care Provider: Page Barr Other Providers: Bernard Julien; Edgardo Villareal Hospital Stay Data Consultations 05/13/25 01:40 ED Decision to Admit Stat 05/13/25 05:55 Consult Orthopedic Spine Surgery Routine Procedures Performed Operation Date: 05/15/25 07:00 Actual Procedures p C6 Anterior Cervical Corpectomy(Not Applicable) - Edgardo Villareal DO Diagnostic Imagining Performed 05/12/25 21:24 CT angio head w con Stat CT angio neck with con Stat CT head/brain wo con Stat 05/13/25 02:19 MRI Brain [MR brain wo con] Routine MRI Cervical [MR cervical spine wo con] Routine 05/15/25 [place] cervical 2-3V Routine Pending Results Patient Have Any Pending Studies at Discharge: No Discharge Instructions Given to Patient (Per Discharging Provider) ACTIVITY RECOMMENDATIONS: SELF CARE INSTRUCTIONS AFTER CERVICAL FUSIONS 1. No smoking. Smoking drastically decreases the chance of a solid fusion. 2. No bending, lifting more than 5 pounds, or twisting (roll like a log when turning in bed). 3. You may shower 3 days after surgery. Thoroughly dry wound. Do not soak in the tub. 4. Cervical collar: Must be worn at all times including sleeping. You may remove the brace only to bath, eat and if you are sitting in a recliner. 5. Please walk as much as you can for exercise. Gradually increase the distance that you walk as your endurance increases. 6. You may return to previous diet. SPECIAL CARE INSTRUCTIONS: VERY IMPORTANT TO READ AND REVIEW A. Do not take any anti-inflammatory medications (i.e. Indocin, Advil, Aspirin, Naprosyn, Aleve, Motrin, etc.) as these may inhibit the chance of a solid fusion. Tylenol is okay to take. B. Your surgical incision has been closed with a cosmetic suture under the skin that will dissolve in about 6 weeks. In 14 days, you can use a pair of clean scissors and cut the suture that is left outside of the skin at the ends of your incision. C. Complications are uncommon, but please contact us if you have any signs or symptoms of: 1. wound infection (fever higher than 102.5 degrees F, redness, separation of wound, drainage, or increasing pain from the incision) 2. blood clots in legs (pain, swelling, redness and warmth in legs) 3. urinary tract infection (fever higher than 102.5 degrees, burning upon urination or increased frequency of urination) 4. nerve problems (inability to walk on your toes or heels, numbness, loss of bowel or bladder control) 5. any other symptoms that concern you. D. Please call the office at if you have any concerns or questions about your operation or recovery. MANAGING PAIN AFTER SPINAL SURGERY 1. Narcotic medication is intended for short-term use and will be provided for surgical pain. Surgical pain usually lasts for a period of 4-6 weeks. Narcotic medication includes Percocet, Vicodin, Darvocet, Tylenol #3 or Lortab. 2. Longer-term pain is more appropriately treated with non-narcotic medication such as Tylenol ES. 3. Muscle spasm is not appropriately treated with narcotics. Muscle relaxers such as Soma, Flexeril or Skelaxin can be used along with Tylenol ES. 4. Remember that we all live with some "aches and pains". This is not unusual or uncommon after an injury or as we get older. 5. We will provide appropriate medication within the normal guidelines of their prescribed use. We will also be very cautious and aware of potential abuse and extended duration of patients' medication needs. 6. Please allow 2-3 days to process refills. Prescriptions will not be mailed but must be picked up at the office. FOLLOW UP VISIT: Keep your scheduled follow-up appointment. Any questions, please call the office at . Metoprolol XL and amlodipine are new medications for blood pressure control. Prescriptions have been sent to your pharmacy at [facility] in [place]. Home health services have been requested Total Time Total Time Spent Total Time Spent (In Minutes): 50 minutes Coding Level of Care Code 54709 INP/OBS DISCH >30 MIN Diagnoses Cervical radiculopathy M54.12 Acute right-sided weakness R53.1 Stroke-like symptom R29.90 Hypertension I10 Steroid-induced hyperglycemia R73.9; T38.0X5A
[2025-05-17] MEDS: amLODIPine BESYLATE 5 MG TAB PO SCH (10:04)
== END 2025-05-17 11:03 | disposition home or self-care (01) | DRG 472 ==
LOC: SUATTDRO → ED 21:10 → 2W 21:10 → SUATTDRO 05-13 02:31 → 2W 05-13 03:41 → 3E 05-16 23:42